=== PATIENT | male | born 1935 | race Caucasian/White ===

== ENCOUNTER 2018-10-15 20:51 | Inpatient (IN) | payer MEDICARE ==
[2018-10-15 21:11] LABS: #Eosinphils 0.4 thou/uL (0.0-0.7); #Lymphocytes 1.4 thou/uL (1.20-3.40); #Monocytes 0.5 thou/uL (0.11-0.59); #Neutrophils 4.3 thou/uL (1.40-6.50); %Basophils 0.4 % (0.0-1.0); %Eosinophils 5.4 % (0.0-10.0); %Lymphocytes 21.2 % (21.0-51.0); %Monocytes 7.5 % (0.0-10.0); %Neutrophils 65.5 % (42.0-75.0); Hemoglobin 13.1 g/dL (14.0-18.0); Mean Corpuscular HGB CONC 33.8 g/dL (32.0-36.0); Mean Corpuscular Hemoglobin 31.1 pg (27.0-31.0); Platelet Count 170 thou/uL (130-400); RBC Distribution Width 12.2 % (11.5-14.5); Red Blood Cell (RBC) Count 4.21 mill/uL (4.70-6.10); White Blood Cell (WBC) Count 6.5 thou/uL (4.8-10.8)
[2018-10-15 21:15] LABS: INR-International Normal Ratio 1.1; PTT 28.7 SEC (22.9-36.1); Prothrombin Time 14.3 SEC (12.0-14.7)
[2018-10-15] MEDS ORDERED: Metoprolol Tartrate 5 MG/5 ML VIAL ONE (21:18)
[2018-10-15 21:26] LABS: ALT (SGPT) 22 U/L (8-55); AST (SGOT) 20 U/L (5-34); Albumin 4.1 g/dL (3.4-4.8); Alkaline Phosphatase 78 U/L (40-150); Anion Gap 14 mmol/L (10-20); BUN (Urea Nitrogen) 17 mg/dL (8.4-25.7); Bilirubin, Total 0.4 mg/dL (0.2-1.2); CK (CPK) 85 U/L (30-200); Calc. Creatinine Clearance 0 mL/min (70-130); Calcium 9.2 mg/dL (7.8-10.44); Carbon Dioxide 25 mmol/L (23-31); Chloride 106 mmol/L (98-107); Estimated GFR-MDRD 70; Globulin 2.3 g/dL (2.4-3.5); Glucose 101 mg/dL (83-110); Potassium 4.1 mmol/L (3.5-5.1); Protein, Total 6.4 g/dL (5.8-8.1); Sodium 141 mmol/L (136-145)
--- NOTE | 2018-10-15 21:32 | CT ---
CT BRAIN NONCONTRAST: DATE: 10/15/18 at 9:00 p.m. HISTORY: 82-year-old male with headache. Altered mental status This acute stroke alert protocol report was called to Dr. Sharma' telephone at 9:05 p.m. on 10/15/18. Dr. Sharma' learning and development assistant stated that Dr. Sharma was aware of the intracranial hemorrhage, and that he wa s speaking on the telephone with neurosurgery service. COMPARISON: None. FINDINGS: There is an approximately 4 x 3.5 cm left temporal lobe intra-axial hematoma with surrounding vasogen ic edema. It causes local mass effect, effacing the trigone and temporal horn of the left lateral sánchez tricle. There is no obstructive hydrocephalus. No midline shift. Small, approximately 0.4 x 0.8 cm in tra-axial hyperdensity in the posterior aspect of the left thalamus could either be another, small f ocus of hemorrhage or calcification. On the contralateral right posterior thalamus, there is a smaller, more faint such high density struc ture, which is probably a calcification. Diffuse involutional changes of the brain, not unusual for a ge. Mild to moderate chronic ischemic white matter changes. No epidural, subarachnoid, or subdural he matoma. No acute calvarial fracture. IMPRESSION: 1. Acute left temporal intra-axial hematoma with mild local mass effect. 2. Questionable small left thalamic hemorrhage vs calcification. Code CYNDY [place] POS: [facility]
[2018-10-15] MEDS ORDERED: Ondansetron PF 4 MG/2 ML Vial IVP PRN (22:03)
[2018-10-15] MEDS ORDERED: Milk Of Magnesia 30 ML UDCUP PO PRN (22:03)
[2018-10-15] MEDS ORDERED: Mag-Al 1200 mg/1200 mg/30 ML UDCUP PO PRN (22:03)
[2018-10-15] MEDS ORDERED: Acetaminophen 650 MG in Premix Bag 1 BAG IVPB PRN (22:08)
[2018-10-15] MEDS ORDERED: Morphine 2 MG/ML SYRINGE SLOW IVP PRN (22:09)
[2018-10-15] MEDS ORDERED: niCARdipine 20MG In NaCl 20 MG/200 ML BAG ONE (22:10)
[2018-10-15] MEDS ORDERED: Lorazepam 2 MG/ML VIAL ONE ×2 (23:20→23:47)
[2018-10-15] MEDS ORDERED: KETAMINE 100 MG/ML (5ML VIAL) ONE (23:30)
--- NOTE | 2018-10-16 01:50 | HP ---
HISTORY OF PRESENT ILLNESS: The patient is an 82-year-old male with a past medical history of hypertension, hyperlipidemia, prostate cancer, recently completed radiation treatment and currently on Lupron therapy, who presented to the emergency department tonight per EMS after sudden onset of headache and development of confusion this afternoon around 4:00 p.m. The patient's reports she was with him around 4:00 p.m. when he 1st developed a headache. He was treated with Advil and did report improvement of his pain at that time. However, over the next few hours, he became increasingly confused. Therefore, she contacted EMS who brought him to the emergency department for further evaluation. CT head was done on arrival, which noted for large left temporal lobar hemorrhage. There is some local mass effect, but no midline shift. The patient's blood pressure was also noted to be elevated on arrival in the emergency department with systolic blood pressure initially 197. He was started on a Cardene drip and this is improved during his admission course. He was evaluated further with lab work and has normal coags and platelets. I am visiting the patient at bedside in the emergency department. He has a GCS of 12. He opens his eyes with some stimulation and command. He is very confused and has inappropriate words. He is noted to be spontaneously moving all fours and will follow some commands with prompting. His pupils are equal and reactive to light. He seems to have good strength throughout. PAST MEDICAL HISTORY: Hypertension, hyperlipidemia, and prostate cancer. PAST SURGICAL HISTORY: Hernia repair. SOCIAL HISTORY: The patient lives at home. He is . Does not smoke, drink, or use any drugs. REVIEW OF SYSTEMS: Per HPI. ALLERGIES: THE PATIENT IS ALLERGIC TO TETRACYCLINE. PHYSICAL EXAMINATION: VITAL SIGNS: BP is 169/89, respiration rate is 16, the patient is 100% on room air, pulse is 47, temperature is 97.9. CONSTITUTIONAL: Awake and alert. GCS 12. Eyes open to verbal commands, his words are inappropriate. He is following some commands and moving his extremities. HEAD: Normocephalic, atraumatic. EYES: PERRLA. Extraocular movements intact. ENT: Oral mucosa is pink and intact and moist. Although, he has inappropriate words, no slurred speech is appreciated. NECK: Nontender to palpation. Free active range of motion. RESPIRATORY: Symmetric chest expansion. No evidence of dyspnea. CARDIOVASCULAR: Regular rate and rhythm. MUSCULOSKELETAL: He is noted to be moving all lower extremities spontaneously. No focal motor weakness is appreciated. NEURO: Unable to assess orientation secondary to the patient's confusion. He has normal speech, although he is saying inappropriate words. He is moving all four spontaneously and does not appear to have any focal motor weakness. ASSESSMENT AND PLAN: This is an 82-year-old male with history of hypertension and prostate cancer, who was brought to the emergency department for confusion and found to have a left temporal lobar intracranial hemorrhage with localized mass effect, but no significant midline shift. His blood pressure was slightly elevated initially on arrival, but he was started on Cardene with improvement. Considering the location of the bleed, hypertensive origin is less likely. We will plan to evaluate further for possible underlying lesion or vascular abnormality with MRI of the brain with and without contrast as well as MRV of the brain. He will be admitted to the critical care unit where he will be monitored closely with q.1 neuro checks, head of the bed will be elevated 30 degrees and systolic blood pressure goal will be 140. We will hold any anticoagulants. I have consulted the Medical Team and Critical Care for assistance with medical management. I have discussed this plan with Dr. Young who is in agreement. Job ID: [id number] MTDD
[2018-10-16] MEDS: Lorazepam 2 MG/ML VIAL SLOW IVP PRN ×3 (02:18→11:44)
[2018-10-16] MEDS: Sodium Chloride 0.9% 1,000 ML IV SCH ×3 (02:34→23:54)
[2018-10-16] MEDS: niCARdipine HCl 50 MG in Sodium Chloride 0.9% 250 ML 230 ML IVPB PRN ×3 (02:35→23:54)
[2018-10-16] MEDS: Famotidine/PF 20 mg/2ml Vial SLOW IVP SCH ×2 (08:05→21:35)
--- NOTE | 2018-10-16 08:14 | MRI ---
PRELIMINARY REPORT/[facility]/EMERGENCY AFTER HOURS PROCEDURE: Addendum created by Beni De Oliveira MD on 10/16/2018 1:57 AM Central Time ([place] & [place]) THIS REPORT CONT AINS FINDINGS THAT MAY BE CRITICAL TO PATIENT CARE. The findings were verbally communicated via telep yamini conference with INGRID KIRAN at 1:57 AM PORTFOLIO DIRECTOR on 10/16/2018. The findings were acknowledged and u nderstood. Initial Report created on 10/16/2018 1:17 AM Central Time ([place] & [place]) EXAM: MR Angiogram Head Without Contrast, Venogram EXAM DATE/TIME: 10/16/2018 12:11 AM CLINICAL HISTORY: 82 years old, male; Signs and symptoms; Headache; Patient HX: Level [address] . . Call dr. Wiggins is at [phone] with results m83, last seen normal around 1600, headache, patient is unable to answer qu estios properly, not making sense, not following directions TECHNIQUE: MR angiogram of the head without contrast. Exam focused on the veins. MIP reconstructed images were created and reviewed. COMPARISON: No relevant prior studies available. FINDINGS: Superior sagittal sinus: Patent. Straight sinus: Patent. Internal cerebral and cortical veins: Unremarkable as visualized. Transverse sinuses: Patent. Sigmoid sinuses: Patent. Internal jugular veins: Visualized segment patent. IMPRESSION: No venous thrombus. Thank you for allowing us to participate in the care of your patient. Dictated and Authenticated by: Beni De Oliveira MD 10/16/2018 1:17 AM Central Time ([place] & [place]) MR VENOGRAM: HISTORY: Stroke alert. COMPARISON: None. TECHNIQUE: Coronal 2D [id number] imaging of the intracranial venous system was performed. Maximum-intensity projection images are submitted for interpretation. FINDINGS: This report is in agreement with the preliminary report by [facility]. No evidence of thrombosis of the int racranial venous system. POS: [facility]
--- NOTE | 2018-10-16 09:03 | CT ---
PRELIMINARY REPORT/[facility]/EMERGENTY AFTER-HOURS PROCEDURE CT Head Without Contrast EXAM DATE/TIME: 10/16/2018 4:38 AM CLINICAL HISTORY: 82 years old, male; Condition or disease; Other: Ich; Patient HX: Ich follow up. M83, last seen laly méndez around 1600, headache, patient is unable to answer questios properly, not making sense, not followi ng directions. Prev sent TECHNIQUE: Axial computed tomography images of the head/brain without contrast. COMPARISON: CT Brain WO Con 10/15/2018 8:59 PM FINDINGS: Brain: No significant change in the large intraparenchymal hemorrhage in the left temporal lobe with surrounding edema which causes effacement of adjacent sulci. Stable minimal midline shift to the righ t of approximately 3 mm. Age appropriate atrophy and small vessel ischemic change. Ventricles: Normal. No ventriculomegaly. Bones/joints: Normal. No acute fracture. Sinuses: Normal as visualized. No acute sinusitis. Mastoid air cells: Normal as visualized. No mastoid effusion. Orbits: The patient has had bilateral lens replacement surgery. Soft tissues: Normal. Vasculature: Carotid and vertebral artery atherosclerotic calcification. IMPRESSION: Stable intraparenchymal hemorrhage in the left temporal lobe. Thank you for allowing us to participate in the care of your patient. Dictated and Authenticated by: Beni De Oliveira MD 10/16/2018 5:09 AM Central Time ([place] & [place]) FINAL REPORT CT HEAD NONCONTRAST: DATE: 10/16/2018. TIME: Performed on an emergency basis at 0439 hours. HISTORY: Intracranial hemorrhage. Followup. COMPARISON: 10/15/2018. FINDINGS: Agree with the preliminary report by Dr. De Oliveira from [facility]. Left temporal intraparenchyma l hematoma is stable compared to the most recent exam. No new abnormalities. POS: [facility]
--- NOTE | 2018-10-16 09:05 | MRI ---
PRELIMINARY REPORT/[facility]/EMERGENTY AFTER-HOURS PROCEDURE Addendum created by Beni De Oliveira MD on 10/16/2018 1:57 AM Central Time ([place] & [place]) THIS REPORT CONTAINS FINDINGS THAT MAY BE CRITICAL TO PATIENT CARE. The findings were verbally commun icated via telephone conference with INGRID KIRAN at 1:57 AM LOAN MANAGER on 10/16/2018. The findings were ac knowledged and understood. Initial Report created on 10/16/2018 1:57 AM Central Time ([place] & [place]) MR Head Without and With Contrast EXAM DATE/TIME: 10/16/2018 12:24 AM CLINICAL HISTORY: 82 years old, male; Signs and symptoms; Altered mental status/memory loss; Patient HX: Level [address] stroke [address] . . Call dr. Sharma at [phone] with results m83, last seen normal around 1600, headache, patie nt is unable to answer questios properly, not making sense, not following directions TECHNIQUE: MR of the head without and with intravenous contrast. CONTRAST: 20 ml of Multihance administered intravenously. COMPARISON: MR head^general 10/16/2018 12:11 AM FINDINGS: Brain: There is a 3.5 x 6.4 x 4.8 cm (54 cc) acute intraparenchymal hemorrhage in the left temporal l obe which appears isointense on T1 with heterogeneous signal and decreased signal on T2. There is als o fluid level in the anterior portion of this collection. This causes effacement of adjacent sulci. T here is approximately 3.3 mm midline shift to the right. Ruiz-white matter differentiation is preserv ed. Ventricles: Normal. No ventriculomegaly. Bones/joints: Unremarkable. Soft tissues: Normal. Sinuses: Normal as visualized. No acute sinusitis. Mastoid air cells: Normal as visualized. No mastoid effusion. Orbits: The patient has had bilateral lens replacement surgery. IMPRESSION: Large intraparenchymal hemorrhage in the left temporal lobe. Correlation with any recent noncontrast head CT is recommended. Thank you for allowing us to participate in the care of your patient. Dictated and Authenticated by: Beni De Oliveira MD 10/16/2018 1:57 AM Central Time ([place] & [place]) FINAL REPORT BRAIN MRI WITH AND WITHOUT CONTRAST: HISTORY: Stroke alert. The patient has a known intracranial hemorrhage. COMPARISON: None. TECHNIQUE: A brain MRI is performed with and without intravenous Gadolinium administration. Multisequential, mu ltiplanar imaging is performed. FINDINGS: This report is in agreement with the preliminary report by [facility]. Redemonstration of a large intrapare nchymal hemorrhage centered in the left temporal lobe, corresponding to recent CT. There is associat ed mass and effacement of the sulci. Associated air fluid level is noted. Absent restricted diffusi on. Throughout the remainder of the cerebrum, there is some restricted diffusion which is compatible with hemorrhage. POS: [facility]
[2018-10-16] MEDS ORDERED: Iopamidol 370 76% 100 ML VIAL ONE (10:06)
--- NOTE | 2018-10-16 14:53 | PRG ---
DATE OF SERVICE: 10/15/2018 SUBJECTIVE: The patient was seen and examined. I agree with Abbey Garces's evaluation on 10/15/2018. The patient is an 82-year-old man, who had sudden onset of confusion and dysphasia and ultimately diminished level of consciousness that prompted his emergent evaluation. Currently, his eyes are closed. He is thrashing about in the bed, moving all 4s very strongly. He is not following commands or interacting with the examiner. He is nonverbal. CT scan reveals a left lobar temporal hematoma that is stable on followup. MRI scan again shows a hematoma without underlying lesion. An MRV is reportedly negative. IMPRESSION AND PLAN: Lobar intracranial hemorrhage, left temporal lobe. Nonsurgical. He has significant cognitive and language issues that are going to be very problematic to manage. 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 We will hold his aspirin and see how the next day or two goes as we address issues of nutrition and mobilization. Hemorrhagic stroke order set has been initiated. Job ID: [id number]
--- NOTE | 2018-10-17 01:58 | CON ---
DATE OF CONSULTATION: 10/16/2018 HISTORY OF PRESENT ILLNESS: Mr. Wetzel is an 82-year-old male, who has unfortunately sustained a hemorrhagic stroke. He was admitted to the hospital late last night. I was consulted because of his presence in the ICU. His daughter and his were at the bedside. He is nonverbal. PAST MEDICAL HISTORY: Remarkable for hypertension, lipid disorder, and prostate cancer. PAST SURGICAL HISTORY: Remarkable for herniorrhaphy. SOCIAL HISTORY: He is a nonsmoker, nondrinker, does not use drugs. As mentioned, his is at the bedside. FAMILY HISTORY: Not obtained. REVIEW OF SYSTEMS: A 10-point review of systems completed, otherwise not obtainable. ALLERGIES: REPORTS A TETRACYCLINE ALLERGY. PHYSICAL EXAMINATION: GENERAL: Mr. Wetzel is an 82-year-old male VITAL SIGNS: Blood pressure this afternoon is 139/73, heart rate is 80, respiratory rate is 16, oximetry is 99. He is hemiplegic. He is apparently ambidextrous according to his family. He opens his eyes. He has intermittently been verbal according to the . He would not follow commands for me. HEENT: His pupils are equal. Sclerae are anicteric. NECK: Supple. LUNGS: Clear. HEART: Regular rhythm. S1 and S2 are normal. ABDOMEN: Soft and nontender. EXTREMITIES: Without clubbing, cyanosis, or edema. He was not moving his right side when I was in the room. IMPRESSION: Parenchymal brain hemorrhage. He is protecting his airway now. It is very likely that he may not over the next few days, but we will continue to monitor him in the critical care unit. He did likely benefit from a PEG. His told me he would never want to be on the ventilator if that was required, but she also has been very quickly told me, but I am making the decisions here, we are going to do everything. Hopefully, he will recover, but at 82 years of age, it is unlikely he will recover to be fully functional again. I explained this to the family. I have asked him to discuss code status in light of the wishes that he had expressed to her in the past. I will follow along with other physicians caring for him. This is a 70 minute consult, with greater than 50% of time spent on unit coordinating care. Job ID: [id number] [facility]
[2018-10-17 05:41] LABS: Anion Gap 15 mmol/L (10-20); BUN (Urea Nitrogen) 14 mg/dL (8.4-25.7); Calc. Creatinine Clearance 66 mL/min (70-130); Calcium 9.3 mg/dL (7.8-10.44); Carbon Dioxide 21 mmol/L (23-31); Chloride 103 mmol/L (98-107); Estimated GFR-MDRD 87; Glucose 98 mg/dL (83-110); Magnesium 1.6 mg/dL (1.6-2.6); Potassium 3.6 mmol/L (3.5-5.1); Sodium 135 mmol/L (136-145)
[2018-10-17 06:37] LABS: Band 4 % (5-11); Hemoglobin 13.9 g/dL (14.0-18.0); Lymphocytes 6 % (21-51); MDiff Complete? YES; Mean Corpuscular HGB CONC 33.6 g/dL (32.0-36.0); Mean Corpuscular Volume 89.3 fL (78.0-98.0); Mean Platelet Volume 8.4 fL (7.4-10.4); Monocytes 5 % (0-10); Neutrophil 83 % (42-75); Platelet Count 191 thou/uL (130-400); RBC Distribution Width 12.3 % (11.5-14.5); Reactive Lymphocytes 2 % (0-10); Red Blood Cell (RBC) Count 4.65 mill/uL (4.70-6.10); White Blood Cell (WBC) Count 14.5 thou/uL (4.8-10.8)
--- NOTE | 2018-10-17 08:32 | PRG ---
DATE OF SERVICE: 10/17/2018 SUBJECTIVE: Mr. Wetzel is on the second day of the his hospital stay following a large left temporal lobe hemorrhage. He remains encephalopathic and very confused. He does not try to speak to me normal. He opens eyes. He has minimal response to pain other than a slight withdrawal response. He is in restraints in all four extremities as he is agitated and constantly moving. None of this seems to be purposeful, but is more or less erratic in nature. Neurosurgery will await hospitalist input, ability issues likely stable to the extent where we may be able to transition him out of the ICU. We will discuss with Dr. Aguirre. Job ID: [id number]
[2018-10-17] MEDS: Famotidine/PF 20 mg/2ml Vial SLOW IVP SCH ×2 (09:11→19:44)
[2018-10-17] MEDS: niCARdipine HCl 50 MG in Sodium Chloride 0.9% 250 ML 230 ML IVPB PRN ×2 (10:07→18:46)
[2018-10-17] MEDS: Sodium Chloride 0.9% 1,000 ML IV SCH (11:03)
--- NOTE | 2018-10-17 11:29 | EKG ---
Test Reason : Blood Pressure : / mmHG Vent. Rate : 048 BPM Atrial Rate : 048 BPM P-R Int : 164 ms QRS Dur : 136 ms QT Int : 484 ms P-R-T Axes : 017 018 -05 degrees QTc Int : 432 ms Marked sinus bradycardia Possible Left atrial enlargement Right bundle branch block Abnormal ECG Confirmed by LEON TELLEZ, MICHAEL ([id number]), news assignment editor ANDREINA PRECIADO ([id number]) on 10/17/2018 11:29:12 AM Referred By: Confirmed By:MICHAEL QUINTERO MD
--- NOTE | 2018-10-17 12:12 | PRG ---
DATE OF SERVICE: 10/17/2018 SUBJECTIVE: Mr. Wetzel is 2 days status post admission for a left temporal intracerebral hemorrhage. He has undergone an MRI scan as well as a CT angiography, both of which were negative for underlying lesion. This likely represents amyloid angiopathy versus hypertensive bleed. The hemorrhage has been relatively stable in size. Mr. Wetzel is in the ICU, resting comfortably. He does not awaken easily nor does he follow any commands. I would anticipate he would have a rather profound receptive aphasia given the location of the hemorrhage. He did fail his swallow study today for the most part due to inability to participate. I met with his today and had a discussion with them. I do not foresee a need for neurosurgical intervention. I did explain to her the other concerning risks associated with the type of hemorrhage in this nature, namely development of pneumonia, lower extremity DVTs, and maintaining adequate nutrition. She is well aware, he may require a PEG tube. Depending on his respiratory status over the next couple of days, he may require re-intubation if that is the direction he wants to move. Currently, he appears to be stable with the plan is to keep him in the ICU to remain vigilant with respect to his respiratory status and secretions. Job ID: [id number]
--- NOTE | 2018-10-17 21:09 | PDOC.PN ---
- Subjective Encounter Start Date: 10/17/18 Encounter Start Time: 13:00 -: non-verbal Patient seen and examined for med mngt. Family at bedside.. No overnight events - Objective MAR Reviewed: Yes Vital Signs & Weight: Vital Signs (12 hours) Temp Pulse Pulse BP BP Pulse Ox Pulse Ox 10/17/18 11:33 72 72 113/58 L 123/52 L 96 97 10/17/18 11:00 99.8 F H Weight Admit Weight 152 lb 12.485 oz Weight 147 lb 14.883 oz Most Recent Monitor Data Heart Rate from ECG 98 NIBP 121/74 NIBP BP-Mean 89 Respiration from ECG 35 SpO2 95 I&O: 10/16/18 10/17/18 10/18/18 06:59 06:59 06:59 Intake Total 551 2573 1720 Output Total 475 2705 570 Balance 76 -132 1150 Result Diagrams: 10/18/18 04:14 10/18/18 04:14 EKG Reviewed by me: Yes (Tele SR) Phys Exam - Physical Examination Constitutional: NAD (restless) Respiratory: no wheezing, no rhonchi Cardiovascular: RRR, no rub Gastrointestinal: soft, non-tender Neurological: moves all 4 limbs (spont) Dx/Plan (1) Toxic metabolic encephalopathy Code(s): G92 - TOXIC ENCEPHALOPATHY Status: Acute (2) Hypertensive emergency Code(s): I16.1 - HYPERTENSIVE EMERGENCY Status: Acute (3) Swallowing dysfunction Code(s): R13.10 - DYSPHAGIA, UNSPECIFIED Status: Acute (4) HLD (hyperlipidemia) Code(s): E78.5 - HYPERLIPIDEMIA, UNSPECIFIED Status: Chronic (5) Hypothyroidism Code(s): E03.9 - HYPOTHYROIDISM, UNSPECIFIED Status: Chronic - Plan cont current plan of care, plan discussed w/ family, speech therapy, DVT proph w /SCDs Cont Cardene drip -: Add PRN Labetalol -: Start low dose IV Levothyroxine -: Echo pend -: Full code. DPOA - spouse Review of Systems - Review of Systems Other: Cannot obtain due to current mentation - Medications/Allergies Allergies/Adverse Reactions: Allergies Allergy/AdvReac Type Severity Reaction Status Date / Time spironolactone Allergy Severe Verified 10/16/18 03:33 Tetracyclines Allergy Verified 10/16/18 03:33 Medications: Current Medications Acetaminophen (Tylenol) 650 mg PO Q6H PRN PRN Reason: Fever > 101 or Headache Al Hydroxide/Mg Hydroxide (Maalox) 30 ml PO QIDPRN PRN PRN Reason: Dyspepsia Famotidine (Pepcid) 20 mg SLOW IVP Q12HR [facility] Last Admin: 10/17/18 19:44 Dose: 20 mg Sodium Chloride (Normal Saline 0.9%) 1,000 mls @ 80 mls/hr IV .[id number] [facility] Last Admin: 10/17/18 11:03 Dose: 1,000 mls Nicardipine HCl 50 mg/ Sodium (Chloride) 250 mls @ 0 mls/hr IVPB INF PRN; Protocol PRN Reason: SBP > 150 or DBP > 90 Last Admin: 10/17/18 18:46 Dose: 250 mls Dexmedetomidine HCl 200 mcg/ (Sodium Chloride) 50 mls @ 0 mls/hr IVPB INF ANEUDY; Protocol Last Admin: 10/17/18 04:53 Dose: 50 mls Labetalol HCl (Normodyne) 10 mg SLOW IVP Q1H PRN PRN Reason: Systolic BP > 140 Lorazepam (Ativan) 1 mg SLOW IVP Q4H PRN PRN Reason: Anxiety/Agitation Last Admin: 10/16/18 11:44 Dose: 1 mg Magnesium Hydroxide (Milk Of Magnesium) 30 ml PO BIDPRN PRN PRN Reason: Constipation Morphine Sulfate (Morphine) 2 mg SLOW IVP Q4H PRN PRN Reason: Moderate to Severe Pain (6-10) Ondansetron HCl (Zofran) 4 mg IVP BIDPRN PRN PRN Reason: Nausea/Vomiting Sodium Chloride (Flush - Normal Saline) 10 ml IVF PRN PRN PRN Reason: Saline Flush
--- NOTE | 2018-10-18 00:14 | PRG ---
DATE OF SERVICE: 10/17/2018 SUBJECTIVE: Mr. Wetzel is more fidgety today. He is all over the bed. He is moving all of his extremities. OBJECTIVE: VITAL SIGNS: Heart rate is 90, blood pressure 130/74, this evening, respiratory rates in the teens. LUNGS: He is protecting his airway. His lungs are clear. HEART: Regular rhythm. S1-S2 are normal. ABDOMEN: Soft and nontender. EXTREMITIES: Without asymmetry or edema. IMAGING: Echocardiogram is done, which shows a normal ejection fraction. No thrombus was seen. LABORATORY DATA: White count 14.5, hemoglobin 13.9, platelets 191. Sodium 135, potassium 3.6, chloride 103, bicarb 21, BUN 14, creatinine 0.84. IMPRESSION: Temporal lobe bleed, clinically stable. He is unable to swallow at this point in time. Will consider Dobhoff tube placement, if he is not ready.A percutaneous endoscopic gastrostomy would be the next step, probably tomorrow. I think he should stay in the Critical Care Unit, because he is certainly at high risk for developing an inability to handle these secretions. His is very appreciate of the care given. I Tried to answer all of her questions. It is a difficult situation, because none of us can tell her exactly how much he will recover. Job ID: [id number] [facility]
[2018-10-18] MEDS: Sodium Chloride 0.9% 1,000 ML IV SCH ×2 (00:33→12:42)
[2018-10-18] MEDS: niCARdipine HCl 50 MG in Sodium Chloride 0.9% 250 ML 230 ML IVPB PRN ×2 (00:36→12:43)
[2018-10-18 05:13] LABS: Anion Gap 13 mmol/L (10-20); BUN (Urea Nitrogen) 20 mg/dL (8.4-25.7); Calc. Creatinine Clearance 71 mL/min (70-130); Calcium 8.9 mg/dL (7.8-10.44); Carbon Dioxide 21 mmol/L (23-31); Chloride 104 mmol/L (98-107); Estimated GFR-MDRD Greater than 90; Glucose 92 mg/dL (83-110); Potassium 3.2 mmol/L (3.5-5.1); Sodium 135 mmol/L (136-145)
[2018-10-18 07:03] LABS: Band 10 % (5-11); Hemoglobin 13.3 g/dL (14.0-18.0); Lymphocytes 4 % (21-51); MDiff Complete? YES; Mean Corpuscular HGB CONC 34.2 g/dL (32.0-36.0); Mean Corpuscular Hemoglobin 30.4 pg (27.0-31.0); Mean Corpuscular Volume 88.7 fL (78.0-98.0); Monocytes 7 % (0-10); Neutrophil 79 % (42-75); Platelet Count 200 thou/uL (130-400); RBC Distribution Width 12.2 % (11.5-14.5); White Blood Cell (WBC) Count 15.2 thou/uL (4.8-10.8)
--- NOTE | 2018-10-18 10:45 | PRG ---
DATE OF SERVICE: 10/18/2018 SUBJECTIVE: Mr. Wetzel is sitting on side of bed with his holding him up. He is tearful. OBJECTIVE: GENERAL: He is moving all his extremities. VITAL SIGNS: Heart rate 92, blood pressure 136/74, respiratory rate is in the 20s, oximetry is 95%. LUNGS: Unchanged. HEART: Unchanged. ABDOMEN: Unchanged. LABORATORY DATA: White count 15.2, hemoglobin 13.3, platelets 200,000. Sodium 135, potassium 3.2, chloride 104, bicarb 21, BUN 20, and creatinine 0.76. IMPRESSION: Hemorrhagic stroke with a labile mood now. He appears to be clinically stable. Nutrition is an issue. He is not cooperative enough to keep a Dobbhoff tube in without pulling it out. He is going to have a repeat swallowing evaluation today. If he does not pass that, then consideration needs to be given for PEG placement. Job ID: [id number] MTDD
[2018-10-18] MEDS: Levothyroxine 100 MCG SDV IVP SCH (11:00)
[2018-10-18] MEDS ORDERED: LEVOBUNOLOL 0.5% EA EYE SCH (11:00)
[2018-10-18] MEDS: Famotidine/PF 20 mg/2ml Vial SLOW IVP SCH ×2 (11:01→20:01)
[2018-10-18] MEDS: Acetaminophen 1,000 MG in Premix Bag 1 BAG IVPB PRN (14:18)
[2018-10-18] MEDS: D5 0.9% NS w/ 20 mEq KCl 1,000 ML IV SCH (16:26)
--- NOTE | 2018-10-18 19:22 | PDOC.PN ---
- Subjective Encounter Start Date: 10/18/18 Encounter Start Time: 14:30 Patient seen and examined for med mngt. Was more awake earlier. Sleeping now. No overnight events per RN and family. On Cardene drip. - Objective MAR Reviewed: Yes Vital Signs & Weight: Vital Signs (12 hours) Temp Pulse Pulse BP BP Pulse Ox 10/18/18 16:00 99 F 10/18/18 12:00 98.6 F 10/18/18 10:27 91 88 137/68 126/70 10/18/18 08:00 98.5 F 95 Weight Admit Weight 152 lb 12.485 oz Weight 150 lb 12.739 oz Most Recent Monitor Data Heart Rate from ECG 77 NIBP 131/74 NIBP BP-Mean 93 Respiration from ECG 19 SpO2 95 I&O: 10/17/18 10/18/18 10/19/18 06:59 06:59 06:59 Intake Total 2573 3087 1241.4 Output Total 2705 1195 1500 Balance -132 1892 -258.6 Result Diagrams: 10/18/18 04:14 10/18/18 04:14 EKG Reviewed by me: Yes (Tele SR) Phys Exam - Physical Examination Constitutional: NAD Respiratory: no wheezing, no rhonchi Cardiovascular: RRR, no rub Gastrointestinal: soft, positive bowel sounds Musculoskeletal: no edema Dx/Plan (1) Toxic metabolic encephalopathy Code(s): G92 - TOXIC ENCEPHALOPATHY Status: Acute Comment: improving (2) Hypertensive emergency Code(s): I16.1 - HYPERTENSIVE EMERGENCY Status: Acute Comment: on Cardene drip (3) Swallowing dysfunction Code(s): R13.10 - DYSPHAGIA, UNSPECIFIED Status: Acute Comment: NPO per [employer] (4) HLD (hyperlipidemia) Code(s): E78.5 - HYPERLIPIDEMIA, UNSPECIFIED Status: Chronic (5) Hypothyroidism Code(s): E03.9 - HYPOTHYROIDISM, UNSPECIFIED Status: Chronic (6) Hypokalemia Code(s): E87.6 - HYPOKALEMIA Status: Acute - Plan cont current plan of care, plan discussed w/ family, olmos catheter, PT/OT, speech therapy, DVT proph w/SCDs Cont supportive care -: Start PO anti HTN meds once able to tolerate PO -: Cont Cardene drip -: Change IVF to D5NS with KCL due to hypokalemia -: AM labs Review of Systems - Review of Systems Other: Cannot obtain due to current mentation. - Medications/Allergies Allergies/Adverse Reactions: Allergies Allergy/AdvReac Type Severity Reaction Status Date / Time spironolactone Allergy Severe Verified 10/16/18 03:33 Tetracyclines Allergy Verified 10/16/18 03:33 Medications: Current Medications Acetaminophen (Tylenol) 650 mg PO Q6H PRN PRN Reason: Fever > 101 or Headache Al Hydroxide/Mg Hydroxide (Maalox) 30 ml PO QIDPRN PRN PRN Reason: Dyspepsia Famotidine (Pepcid) 20 mg SLOW IVP Q12HR [facility] Last Admin: 10/18/18 11:01 Dose: 20 mg Nicardipine HCl 50 mg/ Sodium (Chloride) 250 mls @ 0 mls/hr IVPB INF PRN; Protocol PRN Reason: SBP > 150 or DBP > 90 Last Admin: 10/18/18 12:43 Dose: 250 mls Dexmedetomidine HCl 200 mcg/ (Sodium Chloride) 50 mls @ 0 mls/hr IVPB INF [facility]; Protocol Last Admin: 10/17/18 04:53 Dose: 50 mls Acetaminophen 1,000 mg/ Device 100 mls @ 400 mls/hr IVPB Q6HR PRN PRN Reason: Fever > 101/Pain Stop: 10/19/18 13:54 Last Admin: 10/18/18 14:18 Dose: 100 mls Potassium Chloride/Dextrose/Sod Cl (D5 0.9% Ns W/ 20 Meq Kcl) 1,000 mls @ 75 mls/hr IV .[id number] [facility] Last Admin: 10/18/18 16:26 Dose: 1,000 mls Labetalol HCl (Normodyne) 10 mg SLOW IVP Q1H PRN PRN Reason: Systolic BP > 140 Levothyroxine Sodium (Synthroid) 25 mcg IVP DAILY [facility] Last Admin: 10/18/18 11:00 Dose: 25 mcg Lorazepam (Ativan) 1 mg SLOW IVP Q4H PRN PRN Reason: Anxiety/Agitation Last Admin: 10/16/18 11:44 Dose: 1 mg Magnesium Hydroxide (Milk Of Magnesium) 30 ml PO BIDPRN PRN PRN Reason: Constipation Morphine Sulfate (Morphine) 2 mg SLOW IVP Q4H PRN PRN Reason: Moderate to Severe Pain (6-10) Ondansetron HCl (Zofran) 4 mg IVP BIDPRN PRN PRN Reason: Nausea/Vomiting Levobunolol Ophthalmic Solution 0.5% 0 each EA EYE DAILY ANEUDY Sodium Chloride (Flush - Normal Saline) 10 ml IVF PRN PRN PRN Reason: Saline Flush
[2018-10-19] MEDS: Acetaminophen 1,000 MG in Premix Bag 1 BAG IVPB PRN ×2 (01:27→14:25)
[2018-10-19] MEDS: D5 0.9% NS w/ 20 mEq KCl 1,000 ML IV SCH (04:46)
[2018-10-19 05:19] LABS: Hemoglobin 12.7 g/dL (14.0-18.0); Mean Corpuscular HGB CONC 33.6 g/dL (32.0-36.0); Mean Corpuscular Hemoglobin 30.2 pg (27.0-31.0); Mean Corpuscular Volume 89.9 fL (78.0-98.0); Platelet Count 192 thou/uL (130-400); RBC Distribution Width 12.1 % (11.5-14.5); Red Blood Cell (RBC) Count 4.22 mill/uL (4.70-6.10); White Blood Cell (WBC) Count 15.1 thou/uL (4.8-10.8)
[2018-10-19 05:24] LABS: Band 5 % (5-11); Lymphocytes 6 % (21-51); MDiff Complete? YES; Monocytes 12 % (0-10); Neutrophil 77 % (42-75)
[2018-10-19 05:34] LABS: Anion Gap 14 mmol/L (10-20); BUN (Urea Nitrogen) 18 mg/dL (8.4-25.7); Calc. Creatinine Clearance 66 mL/min (70-130); Calcium 8.9 mg/dL (7.8-10.44); Carbon Dioxide 23 mmol/L (23-31); Chloride 106 mmol/L (98-107); Estimated GFR-MDRD Greater than 90; Glucose 101 mg/dL (83-110); Potassium 3.2 mmol/L (3.5-5.1); Sodium 140 mmol/L (136-145)
--- NOTE | 2018-10-19 07:29 | CT ---
NONCONTRAST HEAD CT CT ANGIOGRAM OF THE HEAD CT ANGIOGRAM OF THE NECK: HISTORY: Intracranial hemorrhage. COMPARISON: Head CT without contrast 10/15/2018. TECHNIQUE: Noncontrast head CT is performed in the axial plane. CT angiogram of the head and neck is performed in the axial plane. Three-dimensional reformatted images are submitted for interpretation. FINDINGS: NONCONTRAST HEAD CT: Intraparenchymal hemorrhage centered in the left temporal lobe is demonstrated measuring 3.0 x 4.6 cm . There is associated edema with effacement of the left temporal sulci. There is some mass effect u gaudencio the temporal horn of the left lateral ventricle. There is no significant midline shift. Basilar cisterns are patent. Ambient cisterns are also patent. Calvarium is intact. Postop contrast head CT does not demonstrate any pathologic enhancement of the brain parenchyma. Cor tical kate-white matter differentiation is preserved. Bilateral lens implants are appropriately located. Both globes are intact. Retrobulbar fat is prese rved. Limited evaluation of the oral cavity due to dental amalgam artifact. No obvious masses in th e oral cavity. Midline fatty raphae of the tongue is preserved. Epiglottis has a normal caliber. P reepiglottic fat is preserved. There is no prevertebral soft tissue swelling. Minimal heterogeneity of the left thyroid gland. A nonemergent ultrasound is recommended. Symmetric attenuation of the parotid and submandibular glands. Symmetric attenuation of the sternocl eidomastoid muscles. No evidence of lymphadenopathy by size criteria. Varying degrees of central canal stenosis and foraminal narrowing on the basis of degenerative change . Evaluation is limited by technique. Cervical spine vertebral body height is maintained. There is no fracture. Upper mediastinum is unremarkable. Chronic changes of the visualized lung apices. CT ANGIOGRAM: Aortic arch has a normal caliber. There is atherosclerosis of the aortic knob. RIGHT CAROTID: There is appropriate enhancement and luminal diameter of the origin of the right carotid artery, comm on carotid artery, carotid bifurcation, and internal carotid artery. There is tortuosity of the dist al right internal carotid artery. LEFT CAROTID: There is appropriate enhancement and luminal diameter of the origin of the left carotid artery, commo n carotid artery, carotid bifurcation, and internal carotid artery. There is calcified plaque withou t significant stenosis in the left carotid bifurcation and proximal internal carotid artery. There i s tortuosity of the distal left internal carotid artery. Both subclavian arteries are patent. Origin of both cervical carotid arteries demonstrates minimal atherosclerosis of the left cervical ca rotid artery. Nevertheless, there is no significant stenosis. Both vertebral arteries are patent th roughout their course in the neck. The left vertebral artery is dominant. CT ANGIOGRAM OF THE HEAD: The distal cervical and intracranial internal carotid arteries have appropriate enhancement and lumin al diameter. ANTERIOR CIRCULATION: There is appropriate enhancement and luminal diameter of the A1 and M1 segments. Proximal A2 segment s and MCA branches are unremarkable. There is no evidence of a vascular malformation in the left cer ebrum. Vascular malformation could easily be obscured due to the presence of hematoma in the left te mporal lobe. POSTERIOR CIRCULATION: Both intracranial vertebral arteries are patent. Both vertebral arteries supply a normal-caliber bas ilar artery. The left and right P1 segments have appropriate enhancement and luminal diameter. No e vidence of a posterior circulation aneurysm or vascular malformation. IMPRESSION: 1. Redemonstration of a hemorrhage centered in the left temporal lobe. 2. No evidence of a vascular malformation or aneurysm. A vascular lesion could easily be obscured g iven the presence of hemorrhage and edema in the left temporal lobe. Followup imaging can be perform ed when acute hematoma resolves. 3. No evidence of significant stenosis based upon NASCET criteria and other cervical carotid artery. POS: [facility]
[2018-10-19] MEDS ORDERED: D5 NS w/ 40 mEq KCl 1,000 ML IV SCH (07:45)
[2018-10-19] MEDS: Potassium Chloride 20 MEQ in Premix Bag 1 BAG IVPB SCH ×2 (09:10→10:40)
[2018-10-19] MEDS: Famotidine/PF 20 mg/2ml Vial SLOW IVP SCH ×2 (09:21→20:53)
[2018-10-19] MEDS: LEVOBUNOLOL 0.5% EA EYE SCH (09:22)
[2018-10-19] MEDS: Levothyroxine 100 MCG SDV IVP SCH (09:23)
--- NOTE | 2018-10-19 14:45 | PRG ---
DATE OF SERVICE: 10/19/2018 SUBJECTIVE: Mr. Wetzel continues to become more interactive with each day. OBJECTIVE: VITAL SIGNS: He is afebrile, heart rate is in the 50s, blood pressure 149/81, respiratory rate is 20. GENERAL: He is sitting in a chair. He would follow commands. He moves all four extremities. LUNGS: Clear. HEART: Regular rhythm. ABDOMEN: Soft. He does not follow the commands we want, but he will follow directed commands during the exam. He intermittently swallows to command. Speech pathologist had difficulty doing a bedside evaluation. Instead of doing a barium swallow, we have agreed that we will use thickened Ensure and try to just get sips in him throughout the day. Hopefully, he will tolerate this. I have explained to family some risk with this, but he will not tolerate a Dobbhoff tube, so I think this is the best option versus proceeding straight to PEG placement. I am certain he will pull a Dobbhoff tube out, so we will just try with this and see how he does and reassess him at the bedside tomorrow. If he becomes more cooperative, perhaps we can do a barium swallow. LABORATORY DATA: His electrolytes are unremarkable today. His CBC is essentially unchanged. White count 15, hemoglobin 12.1, and platelets 192, 77 segs, and 5% bands. IMPRESSION: Parenchymal brain hemorrhage, clinically improving. PLAN: Continue supportive care in the critical care environment or on the Stroke Unit if family can stay with him. Job ID: [id number]
--- NOTE | 2018-10-19 20:13 | PDOC.PN ---
- Subjective Encounter Start Date: 10/19/18 Encounter Start Time: 09:00 Patient seen and examined for med mngt. More awake. Able to complete short sentences. Confused. No new complaints. No overnight events - Objective MAR Reviewed: Yes Vital Signs & Weight: Vital Signs (12 hours) Temp Pulse Pulse Pulse Resp BP BP 10/19/18 17:38 10/19/18 16:15 98.8 F 54 L 20 10/19/18 11:54 98.6 F 10/19/18 09:12 102 H 79 148/79 H 105/67 BP Pulse Ox 10/19/18 17:38 149/89 H 10/19/18 16:15 146/87 H 98 10/19/18 11:54 10/19/18 09:12 Weight Admit Weight 152 lb 12.485 oz Weight 149 lb 11.102 oz Most Recent Monitor Data Heart Rate from ECG 61 NIBP 127/89 NIBP BP-Mean 101 Respiration from ECG 17 SpO2 100 I&O: 10/18/18 10/19/18 10/20/18 06:59 06:59 06:59 Intake Total 3087 2161.4 964 Output Total 1195 2915 490 Balance 1892 -753.6 474 Result Diagrams: 10/20/18 04:59 10/20/18 04:59 EKG Reviewed by me: Yes (Tele SR) Phys Exam - Physical Examination Constitutional: NAD Respiratory: no wheezing, no rhonchi Cardiovascular: RRR, no rub Gastrointestinal: soft, non-tender, positive bowel sounds Musculoskeletal: no edema Neurological: non-focal, moves all 4 limbs Dx/Plan (1) Toxic metabolic encephalopathy Code(s): G92 - TOXIC ENCEPHALOPATHY Status: Acute Comment: improving (2) Hypertensive emergency Code(s): I16.1 - HYPERTENSIVE EMERGENCY Status: Acute Comment: off Cardene drip (3) Swallowing dysfunction Code(s): R13.10 - DYSPHAGIA, UNSPECIFIED Status: Acute (4) HLD (hyperlipidemia) Code(s): E78.5 - HYPERLIPIDEMIA, UNSPECIFIED Status: Chronic (5) Hypothyroidism Code(s): E03.9 - HYPOTHYROIDISM, UNSPECIFIED Status: Chronic (6) Hypokalemia Code(s): E87.6 - HYPOKALEMIA Status: Acute - Plan cont current plan of care, DVT proph w/SCDs Replace Potassium -: Cont Labetalol PRN -: Add Hydralazine PRN -: Add Potassium to IVF -: AM labs Review of Systems - Review of Systems Respiratory: negative: Cough, Dry, Shortness of Breath, Hemoptysis, SOB with Excertion, Pleuritic Pain, Sputum, Wheezing Cardiovascular: negative: chest pain, palpitations, orthopnea, paroxysmal nocturnal dyspnea, edema, light headedness, other - Medications/Allergies Allergies/Adverse Reactions: Allergies Allergy/AdvReac Type Severity Reaction Status Date / Time spironolactone Allergy Severe Verified 10/16/18 03:33 Tetracyclines Allergy Verified 10/16/18 03:33 Medications: Current Medications Acetaminophen (Tylenol) 650 mg PO Q6H PRN PRN Reason: Fever > 101 or Headache Al Hydroxide/Mg Hydroxide (Maalox) 30 ml PO QIDPRN PRN PRN Reason: Dyspepsia Famotidine (Pepcid) 20 mg SLOW IVP Q12HR [facility] Last Admin: 10/19/18 09:21 Dose: 20 mg Nicardipine HCl 50 mg/ Sodium (Chloride) 250 mls @ 0 mls/hr IVPB INF PRN; Protocol PRN Reason: SBP > 150 or DBP > 90 Last Admin: 10/18/18 12:43 Dose: 250 mls Potassium Chloride/Dextrose/Sod Cl (D5 Ns W/ 40 Meq Kcl) 1,000 mls @ 75 mls/hr IV .[id number] [facility] Last Admin: 10/19/18 09:52 Dose: 1,000 mls Labetalol HCl (Normodyne) 10 mg SLOW IVP Q1H PRN PRN Reason: Systolic BP > 140 Levothyroxine Sodium (Synthroid) 25 mcg IVP DAILY [facility] Last Admin: 10/19/18 09:23 Dose: 25 mcg Lorazepam (Ativan) 1 mg SLOW IVP Q4H PRN PRN Reason: Anxiety/Agitation Last Admin: 10/16/18 11:44 Dose: 1 mg Magnesium Hydroxide (Milk Of Magnesium) 30 ml PO BIDPRN PRN PRN Reason: Constipation Morphine Sulfate (Morphine) 2 mg SLOW IVP Q4H PRN PRN Reason: Moderate to Severe Pain (6-10) Ondansetron HCl (Zofran) 4 mg IVP BIDPRN PRN PRN Reason: Nausea/Vomiting Levobunolol Ophthalmic Solution 0.5% 0 each EA EYE DAILY [facility] Last Admin: 10/19/18 09:22 Dose: 1 each Sodium Chloride (Flush - Normal Saline) 10 ml IVF PRN PRN PRN Reason: Saline Flush
[2018-10-19] MEDS ORDERED: Dextrose 5 % And 0.9 % NaCl 1,000 ML IV SCH (20:15)
[2018-10-19] MEDS: hydrALAZINE 20 MG/ML VIAL SLOW IVP PRN (20:52)
[2018-10-19] MEDS: Labetalol HCl 100 MG/20 ML VIAL SLOW IVP PRN (22:25)
[2018-10-19] MEDS ORDERED: Lorazepam 2 MG/ML VIAL SLOW IVP SCH (23:45)
[2018-10-19] MEDS: Lorazepam 2 MG/ML VIAL SLOW IVP PRN (23:49)
[2018-10-20] MEDS: Labetalol HCl 100 MG/20 ML VIAL SLOW IVP PRN ×2 (00:28→20:43)
[2018-10-20] MEDS ORDERED: Acetaminophen 650 MG Suppository PR PRN (00:45)
[2018-10-20 05:29] LABS: Anion Gap 14 mmol/L (10-20); BUN (Urea Nitrogen) 15 mg/dL (8.4-25.7); Calc. Creatinine Clearance 71 mL/min (70-130); Calcium 8.7 mg/dL (7.8-10.44); Carbon Dioxide 20 mmol/L (23-31); Chloride 110 mmol/L (98-107); Estimated GFR-MDRD Greater than 90; Glucose 107 mg/dL (83-110); Magnesium 1.7 mg/dL (1.6-2.6); Potassium 3.6 mmol/L (3.5-5.1); Sodium 140 mmol/L (136-145)
[2018-10-20 05:31] LABS: Hemoglobin 12.7 g/dL (14.0-18.0); Mean Corpuscular HGB CONC 33.4 g/dL (32.0-36.0); Mean Corpuscular Hemoglobin 30.4 pg (27.0-31.0); Mean Corpuscular Volume 90.8 fL (78.0-98.0); Mean Platelet Volume 8.8 fL (7.4-10.4); Platelet Count 191 thou/uL (130-400); RBC Distribution Width 12.3 % (11.5-14.5); Red Blood Cell (RBC) Count 4.18 mill/uL (4.70-6.10); White Blood Cell (WBC) Count 12.3 thou/uL (4.8-10.8)
[2018-10-20 05:32] LABS: Band 6 % (5-11); Eosinophils 2 % (0-10); Lymphocytes 13 % (21-51); MDiff Complete? YES; Monocytes 6 % (0-10); Neutrophil 73 % (42-75)
[2018-10-20] MEDS: LEVOBUNOLOL 0.5% EA EYE SCH (08:59)
[2018-10-20] MEDS: Famotidine/PF 20 mg/2ml Vial SLOW IVP SCH ×2 (08:59→20:44)
[2018-10-20] MEDS: Amlodipine 5 MG TAB PO SCH (09:00)
[2018-10-20] MEDS: Enalaprilat Dihydrate 1.25 MG/ML VIAL SLOW IVP SCH (10:19)
[2018-10-20] MEDS: Levothyroxine 100 MCG SDV IVP SCH (10:20)
[2018-10-20] MEDS: Dextrose 5 % And 0.9 % NaCl 1,000 ML IV SCH (10:23)
--- NOTE | 2018-10-20 15:47 | PDOC.PN ---
- Subjective Encounter Start Date: 10/20/18 Encounter Start Time: 09:15 Patient seen and examined for med mngt. No new complaints. Somnolent. Overnight events noted. Received Ativan last night. - Objective MAR Reviewed: Yes Vital Signs & Weight: Vital Signs (12 hours) Temp Pulse Pulse Resp BP BP BP 10/20/18 13:20 79 119/86 10/20/18 12:00 98.4 F 50 L 22 H 121/69 10/20/18 10:19 139/70 10/20/18 09:00 58 L 10/20/18 08:00 98.5 F 58 L 20 150/85 H 10/20/18 04:00 99.5 F 68 19 157/85 H Pulse Ox 10/20/18 13:20 10/20/18 12:00 96 10/20/18 10:19 10/20/18 09:00 10/20/18 08:00 96 10/20/18 04:00 97 Weight Admit Weight 152 lb 12.485 oz Weight 142 lb 3.2 oz Most Recent Monitor Data Heart Rate from ECG 61 NIBP 127/89 NIBP BP-Mean 101 Respiration from ECG 17 SpO2 100 I&O: 10/19/18 10/20/18 10/21/18 06:59 06:59 06:59 Intake Total 2161.4 1789 Output Total 2915 1315 Balance -753.6 474 Result Diagrams: 10/20/18 04:59 10/20/18 04:59 EKG Reviewed by me: Yes (Tele SR/SB) Phys Exam - Physical Examination Constitutional: NAD Respiratory: no wheezing, no rhonchi Cardiovascular: RRR, no rub Gastrointestinal: soft, non-tender, positive bowel sounds Musculoskeletal: no edema Neurological: moves all 4 limbs (spont) Dx/Plan (1) Toxic metabolic encephalopathy Code(s): G92 - TOXIC ENCEPHALOPATHY Status: Acute (2) Hypertensive emergency Code(s): I16.1 - HYPERTENSIVE EMERGENCY Status: Acute Comment: off Cardene drip (3) Swallowing dysfunction Code(s): R13.10 - DYSPHAGIA, UNSPECIFIED Status: Acute (4) HLD (hyperlipidemia) Code(s): E78.5 - HYPERLIPIDEMIA, UNSPECIFIED Status: Chronic (5) Hypothyroidism Code(s): E03.9 - HYPOTHYROIDISM, UNSPECIFIED Status: Chronic (6) Hypokalemia Code(s): E87.6 - HYPOKALEMIA Status: Chronic - Plan cont current plan of care, plan discussed w/ family, PT/OT, speech therapy, DVT proph w/SCDs Cont PO Amlodipine -: Add IV Vasotec for now since he may not be able to take PO meds -: Cont gentle IV hydration -: AM labs -: Will follow. Review of Systems - Review of Systems Cardiovascular: negative: chest pain, palpitations, orthopnea, paroxysmal nocturnal dyspnea, edema, light headedness, other Gastrointestinal: negative: Nausea, Vomiting, Abdominal Pain, Diarrhea, Constipation, Melena, Hematochezia, Other - Medications/Allergies Allergies/Adverse Reactions: Allergies Allergy/AdvReac Type Severity Reaction Status Date / Time spironolactone Allergy Severe Verified 10/16/18 03:33 Tetracyclines Allergy Verified 10/16/18 03:33 Medications: Current Medications Acetaminophen (Tylenol) 650 mg PO Q6H PRN PRN Reason: Fever > 101 or Headache Acetaminophen (Tylenol) 650 mg [place] Q4H PRN PRN Reason: Headache/Fever or Pain Al Hydroxide/Mg Hydroxide (Maalox) 30 ml PO QIDPRN PRN PRN Reason: Dyspepsia Amlodipine Besylate (Norvasc) 5 mg PO DAILY [facility] Last Admin: 10/20/18 09:00 Dose: 5 mg Enalaprilat (Vasotec) 1.25 mg SLOW IVP DAILY [facility] Last Admin: 10/20/18 10:19 Dose: 1.25 mg Famotidine (Pepcid) 20 mg SLOW IVP Q12HR [facility] Last Admin: 10/20/18 08:59 Dose: 20 mg Hydralazine HCl (Apresoline) 10 mg SLOW IVP Q4H PRN PRN Reason: Sbp Greater Than 150 Last Admin: 10/19/18 20:52 Dose: 10 mg Dextrose/Sodium Chloride (D5 0.9% Ns) 1,000 mls @ 50 mls/hr IV .Q20H [facility] Last Admin: 10/20/18 10:23 Dose: 1,000 mls Labetalol HCl (Normodyne) 10 mg SLOW IVP Q1H PRN PRN Reason: Systolic BP > 140 Last Admin: 10/20/18 00:28 Dose: 10 mg Levothyroxine Sodium (Synthroid) 25 mcg IVP DAILY [facility] Last Admin: 10/20/18 10:20 Dose: 25 mcg Lorazepam (Ativan) 0.25 mg SLOW IVP Q6H PRN PRN Reason: Anxiety/Agitation Magnesium Hydroxide (Milk Of Magnesium) 30 ml PO BIDPRN PRN PRN Reason: Constipation Morphine Sulfate (Morphine) 2 mg SLOW IVP Q4H PRN PRN Reason: Moderate to Severe Pain (6-10) Ondansetron HCl (Zofran) 4 mg IVP BIDPRN PRN PRN Reason: Nausea/Vomiting Levobunolol Ophthalmic Solution 0.5% 0 each EA EYE DAILY [facility] Last Admin: 10/20/18 08:59 Dose: 1 each Sodium Chloride (Flush - Normal Saline) 10 ml IVF PRN PRN PRN Reason: Saline Flush
--- NOTE | 2018-10-20 19:18 | CT ---
HISTORY: Headaches. Hemorrhagic stroke. Noncontrast enhanced CT images of the brain is obtained on 10/20/18. Comparison made to previous CT from 10/16/18. CT images of the brain demonstrate a large area of intraparenchymal hemorrhage in the left temporal l obe. There is increasing surrounding cerebral edema. No significant midline shift is seen at this time. No other acute areas of hemorrhage seen. IMPRESSION: Continued area of intraparenchymal left temporal lobe hemorrhage with surrounding edema. POS: [facility]
[2018-10-20] MEDS: Lorazepam 2 MG/ML VIAL SLOW IVP PRN (20:41)
[2018-10-20] MEDS ORDERED: Lorazepam 2 MG/ML VIAL SLOW IVP SCH (23:30)
--- NOTE | 2018-10-20 23:57 | PDOC.EVN ---
Event Note - Event Note Event Note: Patient with increased agitation and attempting to get out of bed. Ordered one time additional Ativan 0.25mg as needed for agitation.
[2018-10-21 05:03] LABS: Band 4 % (5-11); Eosinophils 4 % (0-10); Hemoglobin 11.7 g/dL (14.0-18.0); Lymphocytes 14 % (21-51); MDiff Complete? YES; Mean Corpuscular HGB CONC 33.1 g/dL (32.0-36.0); Mean Corpuscular Volume 90.5 fL (78.0-98.0); Mean Platelet Volume 8.8 fL (7.4-10.4); Monocytes 15 % (0-10); Neutrophil 61 % (42-75); Platelet Count 182 thou/uL (130-400); RBC Distribution Width 12.2 % (11.5-14.5); Reactive Lymphocytes 2 % (0-10); White Blood Cell (WBC) Count 8.4 thou/uL (4.8-10.8)
[2018-10-21 05:11] LABS: Anion Gap 12 mmol/L (10-20); BUN (Urea Nitrogen) 14 mg/dL (8.4-25.7); Calc. Creatinine Clearance 71 mL/min (70-130); Calcium 8.6 mg/dL (7.8-10.44); Carbon Dioxide 22 mmol/L (23-31); Chloride 109 mmol/L (98-107); Estimated GFR-MDRD Greater than 90; Glucose 102 mg/dL (83-110); Potassium 3.2 mmol/L (3.5-5.1); Sodium 140 mmol/L (136-145)
[2018-10-21] MEDS: Dextrose 5 % And 0.9 % NaCl 1,000 ML IV SCH (08:44)
[2018-10-21] MEDS: LEVOBUNOLOL 0.5% EA EYE SCH (08:45)
[2018-10-21] MEDS: Amlodipine 5 MG TAB PO SCH (08:46)
[2018-10-21] MEDS: Famotidine/PF 20 mg/2ml Vial SLOW IVP SCH (08:46)
[2018-10-21] MEDS: Levothyroxine 100 MCG SDV IVP SCH (11:26)
[2018-10-21] MEDS: Enalaprilat Dihydrate 1.25 MG/ML VIAL SLOW IVP SCH (11:27)
[2018-10-21] MEDS ORDERED: Dextrose 5 % And 0.9 % NaCl 1,000 ML IV SCH (13:14)
[2018-10-21] MEDS ORDERED: NS 0.9% w/ 40 MEQ KCL 1,000 ML IV SCH (15:30)
[2018-10-21] MEDS: hydrALAZINE 20 MG/ML VIAL SLOW IVP PRN ×2 (17:59→20:57)
[2018-10-21] MEDS: Lorazepam 2 MG/ML VIAL SLOW IVP PRN (20:52)
--- NOTE | 2018-10-21 21:43 | PDOC.PN ---
- Subjective Encounter Start Date: 10/21/18 Encounter Start Time: 09:00 Patient seen and examined for med mngt. No new complaints. No overnight events - Objective MAR Reviewed: Yes Vital Signs & Weight: Vital Signs (12 hours) Temp Pulse Resp BP BP Pulse Ox 10/21/18 20:57 68 165/97 H 10/21/18 20:00 98.4 F 74 19 170/96 H 95 10/21/18 19:00 76 16 170/96 H 10/21/18 17:59 62 180/100 H 10/21/18 15:41 98.7 F 62 18 161/89 H 95 10/21/18 14:19 160/87 H 10/21/18 11:55 97.4 F L 59 L 18 151/84 H 97 10/21/18 11:27 151/85 H Weight Admit Weight 152 lb 12.485 oz Weight 138 lb 6 oz Most Recent Monitor Data Heart Rate from ECG 61 NIBP 127/89 NIBP BP-Mean 101 Respiration from ECG 17 SpO2 100 I&O: 10/20/18 10/21/18 10/22/18 06:59 06:59 06:59 Intake Total 1789 965 Output Total 1315 900 Balance 474 65 Result Diagrams: 10/22/18 04:38 10/22/18 04:38 Phys Exam - Physical Examination Constitutional: NAD Respiratory: no wheezing, no rhonchi Cardiovascular: RRR, no rub Gastrointestinal: soft, non-tender, positive bowel sounds Musculoskeletal: no edema Neurological: moves all 4 limbs Dx/Plan (1) Toxic metabolic encephalopathy Code(s): G92 - TOXIC ENCEPHALOPATHY Status: Acute (2) Hypertensive emergency Code(s): I16.1 - HYPERTENSIVE EMERGENCY Status: Acute Comment: off Cardene drip (3) Swallowing dysfunction Code(s): R13.10 - DYSPHAGIA, UNSPECIFIED Status: Acute (4) HLD (hyperlipidemia) Code(s): E78.5 - HYPERLIPIDEMIA, UNSPECIFIED Status: Chronic (5) Hypothyroidism Code(s): E03.9 - HYPOTHYROIDISM, UNSPECIFIED Status: Chronic (6) Hypokalemia Code(s): E87.6 - HYPOKALEMIA Status: Acute - Plan cont current plan of care, DVT proph w/SCDs Replace Potassium -: Adjust IVF -: Resume home meds -: DC IV Vasotec Review of Systems - Review of Systems Cardiovascular: negative: chest pain, palpitations, orthopnea, paroxysmal nocturnal dyspnea, edema, light headedness, other Gastrointestinal: negative: Nausea, Vomiting, Abdominal Pain, Diarrhea, Constipation, Melena, Hematochezia, Other - Medications/Allergies Allergies/Adverse Reactions: Allergies Allergy/AdvReac Type Severity Reaction Status Date / Time spironolactone Allergy Severe Verified 10/16/18 03:33 Tetracyclines Allergy Verified 10/16/18 03:33 Medications: Current Medications Acetaminophen (Tylenol) 650 mg PO Q6H PRN PRN Reason: Fever > 101 or Headache Acetaminophen (Tylenol) 650 mg [place] Q4H PRN PRN Reason: Headache/Fever or Pain Last Admin: 10/20/18 20:44 Dose: 650 mg Al Hydroxide/Mg Hydroxide (Maalox) 30 ml PO QIDPRN PRN PRN Reason: Dyspepsia Amlodipine Besylate (Norvasc) 5 mg PO DAILY [facility] Last Admin: 10/21/18 08:46 Dose: 5 mg Atorvastatin Calcium (Lipitor) 20 mg PO DAILY [facility] Benazepril HCl (Lotensin) 20 mg PO DAILY [facility] Hydralazine HCl (Apresoline) 10 mg SLOW IVP Q4H PRN PRN Reason: Sbp Greater Than 150 Last Admin: 10/21/18 20:57 Dose: 10 mg Potassium Chloride/Sodium Chloride (Ns 0.9% W/ 40 Meq Kcl) 1,000 mls @ 50 mls/ hr IV .Q20H [facility] Last Admin: 10/21/18 17:48 Dose: 1,000 mls Labetalol HCl (Normodyne) 10 mg SLOW IVP Q1H PRN PRN Reason: Systolic BP > 140 Last Admin: 10/20/18 20:43 Dose: 10 mg Levothyroxine Sodium (Synthroid) 50 mcg PO 0600 [facility] Levothyroxine Sodium (Synthroid) 100 mcg PO Q7D@0600 [facility] Lorazepam (Ativan) 0.25 mg SLOW IVP Q6H PRN PRN Reason: Anxiety/Agitation Last Admin: 10/21/18 20:52 Dose: 0.25 mg Magnesium Hydroxide (Milk Of Magnesium) 30 ml PO BIDPRN PRN PRN Reason: Constipation Mirabegron (Myrbetriq Er) 50 mg PO DAILY [facility] Morphine Sulfate (Morphine) 2 mg SLOW IVP Q4H PRN PRN Reason: Moderate to Severe Pain (6-10) Ondansetron HCl (Zofran) 4 mg IVP BIDPRN PRN PRN Reason: Nausea/Vomiting Pantoprazole Sodium (Protonix) 40 mg PO DAILY [facility] Levobunolol Ophthalmic Solution 0.5% 0 each EA EYE DAILY [facility] Last Admin: 10/21/18 08:45 Dose: 1 each Sodium Chloride (Flush - Normal Saline) 10 ml IVF PRN PRN PRN Reason: Saline Flush Last Admin: 10/21/18 08:48 Dose: 10 ml
[2018-10-22] MEDS: Labetalol HCl 100 MG/20 ML VIAL SLOW IVP PRN ×2 (01:02→06:10)
[2018-10-22] MEDS: Lorazepam 2 MG/ML VIAL SLOW IVP PRN (02:16)
[2018-10-22 05:34] LABS: Band 15 % (5-11); Eosinophils 3 % (0-10); Hemoglobin 12.9 g/dL (14.0-18.0); Lymphocytes 2 % (21-51); MDiff Complete? YES; Mean Corpuscular HGB CONC 33.8 g/dL (32.0-36.0); Mean Corpuscular Hemoglobin 30.6 pg (27.0-31.0); Mean Corpuscular Volume 90.5 fL (78.0-98.0); Monocytes 10 % (0-10); Neutrophil 70 % (42-75); Platelet Count 224 thou/uL (130-400); RBC Distribution Width 12.4 % (11.5-14.5); Red Blood Cell (RBC) Count 4.23 mill/uL (4.70-6.10); White Blood Cell (WBC) Count 11.7 thou/uL (4.8-10.8)
[2018-10-22] MEDS: Levothyroxine Sodium 50 MCG TAB PO SCH (05:57)
[2018-10-22 06:14] LABS: Anion Gap 15 mmol/L (10-20); BUN (Urea Nitrogen) 10 mg/dL (8.4-25.7); Calc. Creatinine Clearance 69 mL/min (70-130); Calcium 9.1 mg/dL (7.8-10.44); Carbon Dioxide 21 mmol/L (23-31); Chloride 104 mmol/L (98-107); Estimated GFR-MDRD Greater than 90; Glucose 102 mg/dL (83-110); Potassium 3.4 mmol/L (3.5-5.1); Sodium 137 mmol/L (136-145)
[2018-10-22] MEDS: Atorvastatin Calcium 20 MG TAB PO SCH (08:56)
[2018-10-22] MEDS: Amlodipine 5 MG TAB PO SCH (08:57)
[2018-10-22] MEDS: LEVOBUNOLOL 0.5% EA EYE SCH (08:59)
[2018-10-22] MEDS ORDERED: Non-Formulary Item 1 EACH (Lansoprazole [Lansoprazole] 30 MG) PO SCH (09:00)
[2018-10-22] MEDS ORDERED: Non-Formulary Item 1 EACH (Mirabegron [Myrbetriq] 50 MG) PO SCH (09:00)
[2018-10-22] MEDS ORDERED: Potassium Chloride 20 MEQ TAB PO SCH (09:45)
[2018-10-22 11:14] VITALS: BMI 19.3
--- NOTE | 2018-10-22 15:22 | RAD ---
MODIFIED BARIUM SWALLOW: HISTORY: Patient intracranial hemorrhage, dysphagia, feeding difficulties. FINDINGS: Radiation dosimetry is 2.1 minutes of fluoroscopy and AK of 4.0 mGy. Various consistencies of barium sulfate were given to the patient. Spot images obtained. There continues to be some vallecular and piriform sinus pooling with various consistencies. No defi nite evidence of significant aspiration seen. There was some minimal flash penetration with one epis ode with the thin barium; however, no other episodes of aspiration seen. IMPRESSION: Piriform sinus and vallecular contrast pooling. POS: [facility]
--- NOTE | 2018-10-22 20:31 | PDOC.PN ---
- Subjective Encounter Start Date: 10/22/18 Encounter Start Time: 20:29 Subjective: Seen and examined with no new complaint - Objective Vital Signs & Weight: Vital Signs (12 hours) Temp Pulse Pulse Resp BP BP BP 10/22/18 19:30 97.9 F 69 16 134/80 10/22/18 15:45 97.7 F 69 18 122/76 10/22/18 12:00 97.6 F 64 18 140/89 10/22/18 10:40 121/79 10/22/18 09:20 67 130/81 10/22/18 08:57 73 10/22/18 08:56 154/86 H Pulse Ox 10/22/18 19:30 95 10/22/18 15:45 96 10/22/18 12:00 95 10/22/18 10:40 10/22/18 09:20 10/22/18 08:57 10/22/18 08:56 Weight Admit Weight 152 lb 12.485 oz Weight 138 lb 6 oz Most Recent Monitor Data Heart Rate from ECG 61 NIBP 127/89 NIBP BP-Mean 101 Respiration from ECG 17 SpO2 100 I&O: 10/21/18 10/22/18 10/23/18 06:59 06:59 06:59 Intake Total 965 510 Output Total 3100 Balance -2135 510 Result Diagrams: 10/22/18 04:38 10/22/18 04:38 Phys Exam - Physical Examination Constitutional: NAD HEENT: PERRLA, moist MMs, sclera anicteric, TM's clear, oral pharynx no lesions Neck: no nodes, no JVD, supple, full ROM Respiratory: no wheezing, no rales, no rhonchi Cardiovascular: RRR, no significant murmur, no rub Gastrointestinal: soft, non-tender, no distention, positive bowel sounds Dx/Plan (1) Hypertensive emergency Code(s): I16.1 - HYPERTENSIVE EMERGENCY Status: Acute Comment: off Cardene drip (2) Hypokalemia Code(s): E87.6 - HYPOKALEMIA Status: Acute (3) Swallowing dysfunction Code(s): R13.10 - DYSPHAGIA, UNSPECIFIED Status: Acute (4) Toxic metabolic encephalopathy Code(s): G92 - TOXIC ENCEPHALOPATHY Status: Acute (5) HLD (hyperlipidemia) Code(s): E78.5 - HYPERLIPIDEMIA, UNSPECIFIED Status: Chronic (6) Hypothyroidism Code(s): E03.9 - HYPOTHYROIDISM, UNSPECIFIED Status: Chronic - Plan plan discussed w/ family, PT/OT, director social service, speech therapy MBS today--patient didnt do too good-cont with current diet -: Dispo planning * .
[2018-10-23] MEDS ORDERED: Amlodipine 5 MG TAB PO PRN (03:23)
[2018-10-23 05:25] LABS: Band 3 % (5-11); Hemoglobin 13.1 g/dL (14.0-18.0); Lymphocytes 6 % (21-51); MDiff Complete? YES; Mean Corpuscular Hemoglobin 30.2 pg (27.0-31.0); Mean Corpuscular Volume 91.5 fL (78.0-98.0); Mean Platelet Volume 8.9 fL (7.4-10.4); Monocytes 3 % (0-10); Neutrophil 87 % (42-75); Platelet Count 259 thou/uL (130-400); Platelet Morphology Comment Appears Adequate; RBC Distribution Width 12.5 % (11.5-14.5); RBC Morphology Normal; Reactive Lymphocytes 1 % (0-10); Red Blood Cell (RBC) Count 4.33 mill/uL (4.70-6.10); White Blood Cell (WBC) Count 13.6 thou/uL (4.8-10.8)
[2018-10-23 05:30] LABS: Anion Gap 15 mmol/L (10-20); BUN (Urea Nitrogen) 13 mg/dL (8.4-25.7); Calc. Creatinine Clearance 59 mL/min (70-130); Calcium 9.5 mg/dL (7.8-10.44); Carbon Dioxide 25 mmol/L (23-31); Chloride 101 mmol/L (98-107); Estimated GFR-MDRD 87; Glucose 95 mg/dL (83-110); Potassium 3.8 mmol/L (3.5-5.1); Sodium 137 mmol/L (136-145)
[2018-10-23] MEDS: Levothyroxine Sodium 50 MCG TAB PO SCH (06:49)
[2018-10-23] MEDS: Atorvastatin Calcium 20 MG TAB PO SCH (09:19)
[2018-10-23] MEDS: LEVOBUNOLOL 0.5% EA EYE SCH (09:19)
[2018-10-23] MEDS: Amlodipine 5 MG TAB PO SCH (09:20)
--- NOTE | 2018-10-23 13:40 | PDOC.PN ---
- Subjective Encounter Start Date: 10/23/18 Encounter Start Time: 13:38 Subjective: Seen and examined no new complaint - Objective Vital Signs & Weight: Vital Signs (12 hours) Temp Pulse Pulse Resp BP BP BP 10/23/18 11:46 98.4 F 72 20 142/89 H 10/23/18 11:25 76 151/87 H 10/23/18 09:20 72 10/23/18 09:19 145/90 H 10/23/18 07:52 98.3 F 72 20 145/90 H 10/23/18 04:55 98.0 F 74 16 139/86 Pulse Ox 10/23/18 11:46 100 10/23/18 11:25 10/23/18 09:20 10/23/18 09:19 10/23/18 07:52 94 L 10/23/18 04:55 97 Weight Admit Weight 152 lb 12.485 oz Weight 138 lb 6 oz Most Recent Monitor Data Heart Rate from ECG 61 NIBP 127/89 NIBP BP-Mean 101 Respiration from ECG 17 SpO2 100 I&O: 10/22/18 10/23/18 10/24/18 06:59 06:59 06:59 Intake Total 965 610 125 Output Total 3100 10 Balance -2135 600 125 Result Diagrams: 10/23/18 04:33 10/23/18 04:33 Phys Exam - Physical Examination Constitutional: NAD HEENT: PERRLA, moist MMs, sclera anicteric, TM's clear Neck: no nodes, no JVD, supple Respiratory: no wheezing, no rales, no rhonchi, clear to auscultation bilateral Cardiovascular: RRR, no significant murmur, no rub Gastrointestinal: soft, non-tender, no distention, positive bowel sounds Musculoskeletal: no edema, pulses present Dx/Plan (1) Hypertensive emergency Code(s): I16.1 - HYPERTENSIVE EMERGENCY Status: Acute Comment: off Cardene drip (2) Hypokalemia Code(s): E87.6 - HYPOKALEMIA Status: Acute (3) Swallowing dysfunction Code(s): R13.10 - DYSPHAGIA, UNSPECIFIED Status: Acute (4) Toxic metabolic encephalopathy Code(s): G92 - TOXIC ENCEPHALOPATHY Status: Acute (5) HLD (hyperlipidemia) Code(s): E78.5 - HYPERLIPIDEMIA, UNSPECIFIED Status: Chronic (6) Hypothyroidism Code(s): E03.9 - HYPOTHYROIDISM, UNSPECIFIED Status: Chronic - Plan plan discussed w/ family, PT/OT, social media sr strategy manager Didnt do too good with MBS-continue current diet -: Elevated wbc possibly hemoconcentration as all the 3 cell lines are trendin -: up * .
[2018-10-24 05:11] LABS: Band 5 % (5-11); Eosinophils 3 % (0-10); Hemoglobin 12.6 g/dL (14.0-18.0); Lymphocytes 10 % (21-51); MDiff Complete? YES; Mean Corpuscular HGB CONC 32.4 g/dL (32.0-36.0); Mean Corpuscular Hemoglobin 29.7 pg (27.0-31.0); Mean Corpuscular Volume 91.7 fL (78.0-98.0); Mean Platelet Volume 8.9 fL (7.4-10.4); Monocytes 8 % (0-10); Neutrophil 74 % (42-75); Platelet Count 335 thou/uL (130-400); Platelet Morphology Comment Appears Adequate; RBC Distribution Width 12.3 % (11.5-14.5); Red Blood Cell (RBC) Count 4.24 mill/uL (4.70-6.10); White Blood Cell (WBC) Count 15.8 thou/uL (4.8-10.8)
[2018-10-24] MEDS: Levothyroxine Sodium 50 MCG TAB PO SCH (05:17)
[2018-10-24 05:25] LABS: Anion Gap 16 mmol/L (10-20); BUN (Urea Nitrogen) 14 mg/dL (8.4-25.7); Calc. Creatinine Clearance 53 mL/min (70-130); Calcium 9.3 mg/dL (7.8-10.44); Carbon Dioxide 24 mmol/L (23-31); Chloride 100 mmol/L (98-107); Estimated GFR-MDRD 77; Glucose 97 mg/dL (83-110); Potassium 3.6 mmol/L (3.5-5.1); Sodium 136 mmol/L (136-145)
[2018-10-24] MEDS: LEVOBUNOLOL 0.5% EA EYE SCH (10:00)
[2018-10-24] MEDS: Atorvastatin Calcium 20 MG TAB PO SCH (10:01)
[2018-10-24] MEDS ORDERED: Temazepam 15 MG CAP PO PRN (12:20)
[2018-10-24] MEDS: Amlodipine 5 MG TAB PO SCH (12:48)
--- NOTE | 2018-10-24 13:08 | PRG ---
DATE OF SERVICE: 10/24/2018 SUBJECTIVE: The patient is seen and examined at bedside. His and his daughter are present in the room during my visit. They noticed that he is quite sedated in the morning after he gets Ativan and Seroquel the night before and they are asking to make some changes in his regimen. The patient's appetite is good. OBJECTIVE: VITAL SIGNS: Blood pressure is 102/76, and this morning blood pressure went down to 98/68; temperature is 97.9; pulse is 73; respiratory rate 12; O2 saturation is 94%. HEENT: His head is atraumatic and normocephalic. He does not follow my commands. He is confused. His speech is very random. LUNGS: Clear. HEART: S1 and S2 normal. ABDOMEN: Soft, nondistended. EXTREMITIES: No clubbing, cyanosis, or edema. NEUROLOGICAL: He is able to move his all four extremities. There are no any motor deficits. He has good strength in upper and lower extremities. He is not in a good contact with him. He is not able to read. LABORATORY DATA: White count of 15.8, hematocrit 38.9, hemoglobin 12.6, 74% of neutrophils. Normal chemistry. IMPRESSION: 1. A left temporal lobe hemorrhage with surrounding edema based on CT scan. 2. Encephalopathy related to #1. 3. Elevated white count of unclear etiology. The patient does not have any signs of infection. 4. Hypokalemia, corrected. 5. Swallowing dysfunction, status post modification of diet. 6. Hyperlipidemia. 7. Hypothyroidism. PLAN: Plan is to lower his amlodipine dose to 2.5 mg starting tomorrow since his blood pressure is running on the lower side today. Also, I am going to stop his Seroquel and Ativan since he is very sedated in the morning, I am going to use just Restoril. We will continue PT and OT and apparently he is screened for rehab and we are waiting for insurance to give us a green light. Job ID: [id number]
[2018-10-24] MEDS ORDERED: clonazePAM 0.5 MG TAB PO SCH (23:15)
[2018-10-25] MEDS: Levothyroxine Sodium 50 MCG TAB PO SCH (05:51)
[2018-10-25 06:44] LABS: Anion Gap 18 mmol/L (10-20); BUN (Urea Nitrogen) 16 mg/dL (8.4-25.7); Calc. Creatinine Clearance 58 mL/min (70-130); Calcium 9.1 mg/dL (7.8-10.44); Carbon Dioxide 25 mmol/L (23-31); Chloride 99 mmol/L (98-107); Estimated GFR-MDRD 85; Glucose 102 mg/dL (83-110); Magnesium 1.6 mg/dL (1.6-2.6); Potassium 3.8 mmol/L (3.5-5.1); Sodium 138 mmol/L (136-145)
[2018-10-25 06:45] LABS: Band 3 % (5-11); Eosinophils 3 % (0-10); Hemoglobin 12.3 g/dL (14.0-18.0); Hypochromia SLIGHT = 6-15 cells (100X) (0-5/hpf); Lymphocytes 10 % (21-51); MDiff Complete? YES; Mean Corpuscular HGB CONC 33.8 g/dL (32.0-36.0); Mean Corpuscular Volume 91.8 fL (78.0-98.0); Mean Platelet Volume 8.8 fL (7.4-10.4); Monocytes 11 % (0-10); Neutrophil 73 % (42-75); Platelet Count 311 thou/uL (130-400); Platelet Morphology Comment Appears Adequate; RBC Distribution Width 12.1 % (11.5-14.5); Red Blood Cell (RBC) Count 3.98 mill/uL (4.70-6.10); White Blood Cell (WBC) Count 12.5 thou/uL (4.8-10.8)
[2018-10-25] MEDS: LEVOBUNOLOL 0.5% EA EYE SCH (09:19)
[2018-10-25] MEDS: Amlodipine 5 MG TAB PO SCH (09:21)
[2018-10-25] MEDS: Atorvastatin Calcium 20 MG TAB PO SCH (09:22)
--- NOTE | 2018-10-25 09:46 | RAD ---
RADIOGRAPH CHEST 1 VIEW: Date: 10/25/2018. Time: 7:04 a.m. HISTORY: An 82-year-old male with dyspnea and leukocytosis. COMPARISON: No prior chest radiographs are available. FINDINGS: Mild infiltrate-like densities, at right medial base, and left lower lung zone encroaching upon the l eft mid lung zone. No cardiomegaly. No pulmonary edema or pulmonary venous engorgement. No pneumot horax. IMPRESSION: 1. Nonspecific mild pulmonary densities in the bilateral lower lung zones, left greater than right. 2. Without prior studies, it is difficult to determine whether these are acute infiltrates or chroni c. 3. Recommend followup. ROSARIO [] POS: [facility]
[2018-10-25] MEDS ORDERED: Temazepam 15 MG CAP PO PRN (14:39)
[2018-10-25] MEDS: Azithromycin 250 MG TAB PO SCH ×2 (14:44→20:35)
--- NOTE | 2018-10-25 14:45 | PRG ---
DATE OF SERVICE: 10/25/2018 SUBJECTIVE: The patient is seen and examined at the bedside. Apparently, he received clonazepam last night, because Restoril did not really help much. OBJECTIVE: VITAL SIGNS: Blood pressure is 109/72, pulse is 66, temperature is 98, respiratory rate is 16, and O2 saturation is 96% on room air. LUNGS: Clear. HEART: S1, S2 normal. No S3. No S4. No any murmur. ABDOMEN: Soft, nontender. Bowel sounds are present. No organomegaly. EXTREMITIES: No clubbing, cyanosis, or edema. NEUROLOGIC: He follows my commands. His mentation is improved since yesterday. There is some communication possible with him today. Plan, it looks like his altered mental status was partially caused by medications he was taking and as soon as medications were stopped, his mental function improved. We will try to avoid any Seroquel or Ativan, we might need some clonazepam tonight. His white count is down to 12.5 today, hemoglobin 12.3, hematocrit 36.5, and platelet count is 311. Chemistry is within normal limits. Chest x-ray showed nonspecific mild pulmonary densities in the bilateral lower lung zones, left greater than right of unclear chronicity since we do not have any previous x-ray on this patient. IMPRESSION: 1. Left temporal lobe hemorrhage with surrounding edema based on CT scan of the brain. 2. Encephalopathy, somewhat improved since the medications were stopped. 3. Elevated white count with some low-grade temperature 2 days ago and some unclear etiology of pulmonary findings. We will start him on some azithromycin. 4. Hypokalemia, corrected. 5. Swallowing dysfunction, status post modification of diet. 6. Hyperlipidemia. 7. Hypothyroidism. PLAN: Plan is to avoid Seroquel and Ativan. We might use some clonazepam along with Restoril to help him rest at night. We will start azithromycin and he will be transferred to rehab as soon as his transfer is arranged and accepted by insurance company and we will continue PT and OT. Job ID: [id number]
[2018-10-26] MEDS: Levothyroxine Sodium 50 MCG TAB PO SCH (06:04)
[2018-10-26 06:18] LABS: Band 14 % (5-11); Eosinophils 3 % (0-10); Hemoglobin 13.1 g/dL (14.0-18.0); Lymphocytes 14 % (21-51); MDiff Complete? YES; Mean Corpuscular HGB CONC 32.6 g/dL (32.0-36.0); Mean Corpuscular Hemoglobin 29.9 pg (27.0-31.0); Mean Corpuscular Volume 91.7 fL (78.0-98.0); Mean Platelet Volume 8.9 fL (7.4-10.4); Monocytes 5 % (0-10); Neutrophil 64 % (42-75); Nucleated RBC 1 % (0); Platelet Count 374 thou/uL (130-400); Platelet Morphology Comment Appears Adequate; Red Blood Cell (RBC) Count 4.38 mill/uL (4.70-6.10); White Blood Cell (WBC) Count 13.1 thou/uL (4.8-10.8)
[2018-10-26 06:36] LABS: Anion Gap 14 mmol/L (10-20); BUN (Urea Nitrogen) 17 mg/dL (8.4-25.7); Calc. Creatinine Clearance 53 mL/min (70-130); Calcium 9.8 mg/dL (7.8-10.44); Carbon Dioxide 28 mmol/L (23-31); Chloride 99 mmol/L (98-107); Estimated GFR-MDRD 76; Glucose 95 mg/dL (83-110); Potassium 3.9 mmol/L (3.5-5.1); Sodium 137 mmol/L (136-145)
[2018-10-26] MEDS ORDERED: Azithromycin 250 MG TAB PO SCH (09:00)
[2018-10-26] MEDS: Amlodipine 5 MG TAB PO SCH (10:02)
[2018-10-26] MEDS: Atorvastatin Calcium 20 MG TAB PO SCH (10:06)
[2018-10-26] MEDS: LEVOBUNOLOL 0.5% EA EYE SCH (10:06)
[2018-10-26] MEDS ORDERED: clonazePAM 0.5 MG TAB PO PRN (12:15)
--- NOTE | 2018-10-26 13:58 | PRG ---
DATE OF SERVICE: 10/26/2018 SUBJECTIVE: The patient had quite rough night. He had some most likely hallucinations from Restoril that he was giving last night for sleep help, and today around 12:00, he had a syncopal episode. Apparently, he was on his walker and he lost consciousness while getting PT. The monitoring did not show any cardiac abnormalities during this time, so he is set up for a followup CT of the brain since he is admitted with acute cerebral hemorrhage. OBJECTIVE: VITAL SIGNS: Blood pressure is 133/82, pulse is 66, temperature is 99.0, respirations 14, O2 saturation 95% on room air. He does not follow my commands. His pupils responded to light properly. Conjunctivae are pinkish. LUNGS: Clear. HEART: S1 and S2, normal. No S3. No S4. ABDOMEN: Soft, nondistended. EXTREMITIES: No clubbing, cyanosis, or edema. NEUROLOGICAL: As I mentioned above, he follows my commands sporadically. He move his four extremities. There is no any focal deficit. LABORATORY DATA: Labs showed white count of 13.1, hemoglobin of 13.1, hematocrit 40.2, and platelet count 374,000. Normal chemistry. IMPRESSION: 1. Left temporal lobe hemorrhage with surrounding edema based on CT scan of the brain. 2. Syncopal episode today of unclear etiology without any cardiac abnormalities with normal echocardiogram and no changes in his cardiac rate or rhythm. 3. Elevated white cell count with low-grade temperature with some positive mild findings on the chest x-ray suggestive of possible infection. Since we were not able to get urinalysis on him, I am going to increase the spectrum for antibiotic and we will switch him from azithromycin to levofloxacin to cover possible urinary tract pathogens. Obtain CT of the brain and we will see whether this has anything to do with the syncopal episode he just had. I am going to stop his Restoril since he had bad reaction to it and use clonazepam as needed since he responded nicely to clonazepam the night before. We are awaiting for the rehabilitation stay to be approved by the insurance company. Job ID: [id number]
--- NOTE | 2018-10-26 15:10 | CT ---
CT HEAD NONCONTRAST: Date: 10/26/18 HISTORY: Syncope. Recent hemorrhage. COMPARISON: 10/20/18. FINDINGS: Vasogenic edema surrounding the left temporal lobe intraparenchymal hematoma has increased slightly, now with slightly more effacement of the left lateral ventricle. Septum pellucidum is shifted rightwa rd by 0.5 cm. The hematoma itself is less focal and slightly more diffuse. No enlargement. No new areas of hemorrhage. Dystrophic calcification and chronic ischemic changes are stable. IMPRESSION: Interval evolution of the left temporal lobe intraparenchymal hematoma with slight interval increase in vasogenic edema surrounding it. No new abnormalities are demonstrated. POS: [facility]
[2018-10-27] MEDS: Acetaminophen 325 MG TAB PO PRN (03:41)
[2018-10-27] MEDS: Levothyroxine Sodium 50 MCG TAB PO SCH (06:03)
[2018-10-27 06:44] LABS: Anion Gap 13 mmol/L (10-20); BUN (Urea Nitrogen) 21 mg/dL (8.4-25.7); Calc. Creatinine Clearance 51 mL/min (70-130); Calcium 9.6 mg/dL (7.8-10.44); Carbon Dioxide 26 mmol/L (23-31); Chloride 101 mmol/L (98-107); Estimated GFR-MDRD 73; Glucose 113 mg/dL (83-110); Magnesium 1.8 mg/dL (1.6-2.6); Potassium 4.1 mmol/L (3.5-5.1); Sodium 136 mmol/L (136-145)
[2018-10-27] MEDS: Atorvastatin Calcium 20 MG TAB PO SCH (10:09)
[2018-10-27] MEDS: LEVOBUNOLOL 0.5% EA EYE SCH (10:10)
[2018-10-27] MEDS: Amlodipine 5 MG TAB PO SCH (10:10)
--- NOTE | 2018-10-27 13:22 | PDOC.PN ---
- Subjective Encounter Start Date: 10/27/18 Encounter Start Time: 13:21 Mr. Wetzel was seen today in follow-up of intracranial hemorrhage. He is confused and aphasic. However he was less agitated last night, and was able to rest without medication. - Objective MAR Reviewed: Yes Vital Signs & Weight: Vital Signs (12 hours) Temp Pulse Pulse Pulse Pulse Pulse Resp 10/27/18 12:00 96.4 F L 60 16 10/27/18 10:10 56 L 10/27/18 09:24 73 64 63 62 10/27/18 07:59 97.7 F 56 L 20 10/27/18 03:49 98.7 F 65 16 BP BP BP BP BP BP Pulse Ox 10/27/18 12:00 103/73 94 L 10/27/18 10:10 131/80 10/27/18 09:24 83/59 L 92/60 100/76 117/78 10/27/18 07:59 104/71 94 L 10/27/18 03:49 109/71 95 Weight Admit Weight 152 lb 12.485 oz Weight 139 lb 11.2 oz Most Recent Monitor Data Heart Rate from ECG 61 NIBP 127/89 NIBP BP-Mean 101 Respiration from ECG 17 SpO2 100 I&O: 10/26/18 10/27/18 10/28/18 06:59 06:59 06:59 Intake Total 300 116 Balance 300 116 Result Diagrams: 10/26/18 05:04 10/27/18 05:59 Phys Exam - Physical Examination HEENT: PERRLA Respiratory: no wheezing, no rales, no rhonchi, clear to auscultation bilateral Cardiovascular: RRR, no significant murmur, no rub Gastrointestinal: soft, non-tender, positive bowel sounds Musculoskeletal: no edema Neurological: moves all 4 limbs expressive aphasia Dx/Plan (1) ICH (intracerebral hemorrhage) Code(s): I61.9 - NONTRAUMATIC INTRACEREBRAL HEMORRHAGE, UNSPECIFIED Status: Acute (2) Hypertension Code(s): I10 - ESSENTIAL (PRIMARY) HYPERTENSION Status: Chronic (3) Prostate cancer Code(s): C61 - MALIGNANT NEOPLASM OF PROSTATE Status: Chronic (4) Hypothyroidism Code(s): E03.9 - HYPOTHYROIDISM, UNSPECIFIED Status: Chronic - Plan * ICH- likely the result of HTN or Amyloid Angiopathy- continue conservative treatment * HTN- blood pressure is controlled * Hypothyroidism- stable * Metabolic encephalopathy ( agitation from the CVA) improving * Awaiting Rehab placement.
[2018-10-28] MEDS: Acetaminophen 325 MG TAB PO PRN (03:08)
[2018-10-28] MEDS ORDERED: Levothyroxine Sodium 100 MCG TAB PO SCH (06:00)
[2018-10-28] MEDS: Levothyroxine Sodium 50 MCG TAB PO SCH (07:03)
[2018-10-28] MEDS: Atorvastatin Calcium 20 MG TAB PO SCH (08:30)
[2018-10-28] MEDS: LEVOBUNOLOL 0.5% EA EYE SCH (08:31)
[2018-10-28] MEDS ORDERED: Levothyroxine Sodium 50 MCG TAB PO SCH (09:00)
[2018-10-28] MEDS: Amlodipine 5 MG TAB PO SCH (10:04)
[2018-10-28 11:53] VITALS: BP 138/77; TEMP 98.1
--- NOTE | 2018-10-28 11:53 | PDOC.PN ---
- Subjective Encounter Start Date: 10/28/18 Encounter Start Time: 11:52 Mr. Wetzel was seen today in follow-up of ICH. He is aphasic, but does not have any new complaints. - Objective MAR Reviewed: Yes Vital Signs & Weight: Vital Signs (12 hours) Temp Pulse Pulse Pulse Pulse Resp BP 10/28/18 10:04 62 131/80 10/28/18 08:55 59 L 61 67 10/28/18 08:00 97.7 F 62 16 10/28/18 04:00 97.4 F L 69 19 10/28/18 00:00 97.8 F 63 19 BP BP BP BP Pulse Ox 10/28/18 10:04 10/28/18 08:55 123/78 98/79 79/62 L 10/28/18 08:00 119/87 93 L 10/28/18 04:00 105/49 L 99 10/28/18 00:00 123/81 96 Weight Admit Weight 152 lb 12.485 oz Weight 139 lb 11.2 oz Most Recent Monitor Data Heart Rate from ECG 61 NIBP 127/89 NIBP BP-Mean 101 Respiration from ECG 17 SpO2 100 I&O: 10/27/18 10/28/18 10/29/18 06:59 06:59 06:59 Intake Total 116 100 Balance 116 100 Result Diagrams: 10/26/18 05:04 10/27/18 05:59 Phys Exam - Physical Examination HEENT: PERRLA Respiratory: no wheezing, no rales, no rhonchi, clear to auscultation bilateral Cardiovascular: RRR, no significant murmur, no rub Gastrointestinal: soft, non-tender, no distention, positive bowel sounds Musculoskeletal: no edema Dx/Plan (1) ICH (intracerebral hemorrhage) Code(s): I61.9 - NONTRAUMATIC INTRACEREBRAL HEMORRHAGE, UNSPECIFIED Status: Acute (2) Hypertension Code(s): I10 - ESSENTIAL (PRIMARY) HYPERTENSION Status: Chronic (3) Prostate cancer Code(s): C61 - MALIGNANT NEOPLASM OF PROSTATE Status: Chronic (4) Hypothyroidism Code(s): E03.9 - HYPOTHYROIDISM, UNSPECIFIED Status: Chronic - Plan * ICH- continue PT/OT and Speech Therapy * HTN- blood pressure has been a bit labile- will place parameters on Amlodipine - to hold when SBP is less than 110 * He is stable for transfer to Rehab
--- NOTE | 2018-10-28 16:59 | DIS ---
DATE OF ADMISSION: 10/15/2018 DATE OF DISCHARGE: 10/28/2018 DISCHARGE DISPOSITION: Inpatient rehab. DISCHARGE DIAGNOSES: 1. Acute intracranial hemorrhage due to either hypertension or amyloid angiopathy. 2. Hypertension. 3. Metabolic encephalopathy secondary to acute intracranial hemorrhage, resolved. 4. Hypothyroidism. 5. History of prostate cancer. DISCHARGE MEDICATIONS: Include; 1. Levaquin 500 mg daily. 2. Klonopin 0.5 mg daily as needed. 3. Benazepril 20 mg daily, hold for systolic blood pressure less than 110. 4. Amlodipine 2.5 mg daily, also hold for systolic blood pressure less than 110. 5. Myrbetriq 50 mg daily. 6. Synthroid 150 mcg daily. 7. Lansoprazole 30 mg daily. 8. Calcium plus vitamin D two tablets daily. 9. Atorvastatin 20 mg daily. PROCEDURES DONE DURING ADMISSION: The patient had a CT scan of the brain demonstrating an acute left temporal intra-axial hematoma with mild local mass effect. There is questionable small left thalamic hemorrhage versus calcification. The patient also had an MR angiogram and MRI of the brain. The MR angiogram showed patent superior sagittal sinus as well as straight sinus. Internal cerebral cortical veins were unremarkable. There is no venous thrombosis. MRI of the brain showed a large intraparenchymal hemorrhage in the left temporal lobe. CTA of the [place] showed no evidence of vascular malformation or aneurysm. The patient had an echocardiogram, which the ejection fraction was estimated at 60% to 65%. There was normal size of the left ventricle and normal left atrial size. CODE STATUS: Full code. ALLERGIES: TO SPIRONOLACTONE AND TETRACYCLINE. HOSPITAL COURSE: Mr. Wetzel is a pleasant 82-year-old gentleman, who was brought to the hospital after he was noted to be altered. He was found to have an extremely elevated blood pressure and CT scan of the brain demonstrated a left intraventricular or intracerebral hemorrhage. He was placed in the ICU on a Cardene drip by Neurosurgery. It was felt that this would be best managed conservatively. The Hospitalist Service was consulted for medical management. Blood pressure was eventually able to be controlled with amlodipine and benazepril. His metabolic encephalopathy improved over the course of the next few days. He did have a significant expressive aphasia, however, and had to have a modified diet for swallowing. He was subsequently transferred to inpatient rehab primarily for more speech and cognitive therapy as his motor deficits were minimal and continued monitoring of his blood pressure. Job ID: [id number]
== END 2018-10-28 15:30 | DRG 64 ==
LOC: ERS 20:51 → CCU 22:03 → 2SE 10-19 16:08
PROVIDERS: ADMIT Internal Medicine; ATTEND Internal Medicine
DX: I61.2 Nontraumatic intracerebral hemorrhage in hemisphere, unspecified (principal); G92 Toxic encephalopathy; R47.01 Aphasia; I16.1 Hypertensive emergency; R13.10 Dysphagia, unspecified; R40.2412 Glasgow coma scale score 13-15, at arrival to emergency department; R29.704 NIHSS score 4; C61 Malignant neoplasm of prostate; I10 Essential (primary) hypertension; E87.6 Hypokalemia; E03.9 Hypothyroidism, unspecified; E78.5 Hyperlipidemia, unspecified; Z79.899 Other long term (current) drug therapy; Z88.1 Allergy status to other antibiotic agents
CPT/HCPCS: 36415; 36416; 70450; 70496; 70498; 70544; 70553; 71045; 74230; 80048; 80053; 82550; 83735; 84484; 85007; 85025; 85027; 85610; 85730; 93005; 93306; 96365; 96366; 96375; 96376; J0131; J0360; J2060; J3480; J7050; Q9967; S0028

== ENCOUNTER 2018-11-26 12:33 | Outpatient (CLI) | payer MEDICARE ==
--- NOTE | 2018-11-26 14:30 | CT ---
CT BRAIN: HISTORY: History of stroke with hemorrhage. FINDINGS: Noncontrast-enhanced CT images of the brain obtained. Comparison is made to previous exam from 2018. CT images demonstrate previously noted large intraparenchymal left temporal lobe hematoma to be resol ving. There is now less mass effect and resolution of the previously noted [id number] midline regino ft. The left temporal lobe intracerebellar hematoma continues to resolve. Surrounding vasogenic edwin ma is seen, but less pronounced. No evidence of subdural hematoma is seen. Some vertebrobasilar dolechoectasia is seen. IMPRESSION: Continued resolution of left temporal lobe intraparenchymal hematoma. No evidence of acute intracran ial abnormality is seen. POS: [facility]
== END 2018-11-26 12:34 | disposition home or self-care (01) ==
LOC: TBSIIMAG 12:33
PROVIDERS: ATTEND Neurological Surgery
DX: R51 Headache (principal); S06.2X0D Diffuse traumatic brain injury without loss of consciousness, subsequent encounter
CPT/HCPCS: 70450

== ENCOUNTER 2018-12-13 15:42 | Inpatient (IN) | payer MEDICARE ==
[2018-12-13 16:33] LABS: #Basophils 0.1 thou/uL (0.0-0.2); #Eosinphils 0.4 thou/uL (0.0-0.7); #Lymphocytes 1.2 thou/uL (1.20-3.40); #Monocytes 0.7 thou/uL (0.11-0.59); #Neutrophils 7.7 thou/uL (1.40-6.50); %Basophils 0.6 % (0.0-1.0); %Eosinophils 3.8 % (0.0-10.0); %Lymphocytes 11.8 % (21.0-51.0); %Monocytes 7.1 % (0.0-10.0); %Neutrophils 76.8 % (42.0-75.0); Hemoglobin 13.6 g/dL (14.0-18.0); Mean Corpuscular HGB CONC 33.3 g/dL (32.0-36.0); Mean Corpuscular Volume 93.1 fL (78.0-98.0); Mean Platelet Volume 9.2 fL (7.4-10.4); Platelet Count 228 thou/uL (130-400); RBC Distribution Width 13.3 % (11.5-14.5); Red Blood Cell (RBC) Count 4.38 mill/uL (4.70-6.10)
[2018-12-13 16:41] LABS: Bilirubin Negative (Negative); Blood, Urine Negative (Negative); Clarity CLEAR (Clear); Glucose, Urine (Dipstick) Negative (Negative); Leukocyte Negative (Negative); Nitrite Negative (Negative); Protein, Urine (Dipstick) Negative (Neg-Trace); Urobilinogen 0.2 mg/dL (0.2-1.0)
[2018-12-13 16:42] LABS: PTT 29.3 SEC (22.9-36.1); Prothrombin Time 13.1 SEC (12.0-14.7)
--- NOTE | 2018-12-13 16:42 | RAD ---
CHEST ONE VIEW: History: History of stroke, headache. Comparison: 11-10-18 FINDINGS: Heart size is within normal limits. There is some old granuloma calcifications. Probable hiatal daina ia. No confluent pneumonia, overt edema, or pleural effusion . IMPRESSION: No significant acute intrathoracic disease. Evidence for a hiatal hernia. Old granulomatous disease. Atherosclerosis of the aorta. POS: [facility]
[2018-12-13 16:53] LABS: ALT (SGPT) 20 U/L (8-55); AST (SGOT) 23 U/L (5-34); Albumin 4.4 g/dL (3.4-4.8); Alkaline Phosphatase 92 U/L (40-150); Anion Gap 15 mmol/L (10-20); BUN (Urea Nitrogen) 25 mg/dL (8.4-25.7); Bilirubin, Total 0.4 mg/dL (0.2-1.2); Calc. Creatinine Clearance 0 mL/min (70-130); Carbon Dioxide 23 mmol/L (23-31); Chloride 106 mmol/L (98-107); Estimated GFR-MDRD 67; Globulin 3.4 g/dL (2.4-3.5); Glucose 105 mg/dL (83-110); Potassium 4.2 mmol/L (3.5-5.1); Protein, Total 7.8 g/dL (5.8-8.1); Sodium 140 mmol/L (136-145)
--- NOTE | 2018-12-13 16:56 | CT ---
BRAIN CT WITHOUT IV CONTRAST: History: Altered mental status. History of CVA and intracranial hemorrhage. Comparison: 11-26-18 FINDINGS: There is chronic white matter ischemic change noted. Stable scattered calcifications. There is an abn ormal low attenuation focus in the left temporal lobe which is decreased in size from the prior study , evidence for resolving prior left temporal lobe hemorrhage. No new hemorrhage. IMPRESSION: Stable atrophy and chronic white matter ischemic changes. Resolving left temporal lobe old anterior p arenchymal hemorrhage. No new mass or new hemorrhage. POS: [facility]
[2018-12-13 18:06] LABS: Amphetamine Not Detected (NotDetected); Barbiturates Screen Not Detected (NotDetected); Benzodiazepine Screen Not Detected (NotDetected); Cocaine Metabolite Screen Not Detected (NotDetected); Medtox Control Line Valid? VALID (VALID); Medtox Reader # READER 4; Methadone Not Detected (NotDetected); Methamphetamine Not Detected (NotDetected); Opiate Screen Not Detected (NotDetected); Oxycodone Screen Not Detected (NotDetected); Phencyclidine (PCP) Not Detected (NotDetected); THC/Cannabinoid Screen Not Detected (NotDetected); Tricyclic Screen Detected (NotDetected)
[2018-12-13 18:10] LABS: Acetaminophen Less than 6.0 mcg/mL (10.0-30.0); Alcohol Less than 10 mg/dL (Less than 10); CK (CPK) 67 U/L (30-200); Salicylate Less than 8.0 mg/dL (15.0-30.0)
[2018-12-13] MEDS ORDERED: Acetaminophen 325 MG TAB PO PRN (19:09)
[2018-12-13] MEDS ORDERED: Ondansetron PF 4 MG/2 ML Vial IVP PRN (19:09)
[2018-12-13] MEDS ORDERED: Ondansetron ODT 4 MG TAB SL PRN (19:09)
[2018-12-13] MEDS ORDERED: Haloperidol Lactate 5 MG/ML VIAL IM SCH (19:15)
[2018-12-13] MEDS ORDERED: Mirtazapine 15 MG TAB PO SCH (22:30)
[2018-12-13] MEDS ORDERED: clonazePAM 0.5 MG TAB PO SCH (22:30)
[2018-12-13] MEDS ORDERED: cloNIDine 0.1 MG TAB PO PRN (23:11)
[2018-12-13] MEDS ORDERED: Labetalol HCl 100 MG/20 ML VIAL SLOW IVP PRN (23:11)
[2018-12-13] MEDS: Calcium Carbonate 500 MG ChewTAB PO PRN (23:51)
--- NOTE | 2018-12-14 00:30 | HP ---
PRIMARY CARE PHYSICIAN: Dr. Gamino in [place]. CHIEF COMPLAINT: Altered mentation. HISTORY OF PRESENT ILLNESS: The patient is an 83-year-old male with recent intracranial bleed secondary to hypertension versus amyloid angiopathy, was brought into the emergency room with altered mentation. 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 He had some episodes of delirium during the hospital stay, which responded well to Klonopin. His stay at Rehab was uneventful except for some confusion during the end of his stay per family report. The patient was evaluated by Dr. Gamino three weeks ago and was started on mirtazapine 30 mg at bedtime. Four days ago, the patient was re-evaluated by Dr. Gamino and was started on Seroquel 50 mg at bedtime and 25 mg daily along with ciprofloxacin for possible UTI. There was no urinalysis done since the patient refused to give a sample. The confusion got worse over the last 24 hours for which he was brought into the emergency room for evaluation. He was agitated at home per family report. At the time of my evaluation, he is sitting on the bed with the family. He is still confused, however is calm. He denies any complaints at this time. PAST MEDICAL HISTORY: 1. Recent hospitalization for intracranial hemorrhage secondary to hypertension versus amyloid angiopathy. 2. Hypertension. 3. Hypothyroidism. 4. History of prostate cancer. 5. Hyperlipidemia. 6. Dementia. PAST SURGICAL HISTORY: Hernia repair. ALLERGIES: THE PATIENT IS ALLERGIC TO ALDACTONE AND TETRACYCLINE. CURRENT HOME MEDICATIONS: 1. Lipitor 20 mg daily. 2. Benazepril 10 mg daily. 3. Lansoprazole 30 mg daily. 4. Levothyroxine 50 mcg every day except for 100 mcg on Sundays. 5. Mirabegron 50 mg daily. 6. Remeron 30 mg at bedtime. 7. Seroquel 50 mg at night and 25 mg daily. SOCIAL HISTORY: The patient currently lives at home with his family. His spouse is a DPOA. He is full code. No current use of smoking, alcohol, or drug use. FAMILY HISTORY: Negative for heart disease. REVIEW OF SYSTEMS: Cannot be reliably obtained from the patient due to current cognitive status. PHYSICAL EXAMINATION: VITAL SIGNS: Temperature 98.9, respirations 20, pulse rate of 86, blood pressure 164/97, and O2 saturation 100% on room air. GENERAL: An 83-year-old male in no apparent distress, confused. HEENT: Head; atraumatic, normocephalic. Sclerae anicteric. Moist mucous membranes. No oral lesion. NECK: Supple. No JVD appreciated. No carotid bruit. LUNGS: Clear to auscultation bilaterally. No wheezing, rales, or rhonchi. HEART: S1, S2 present. Regular rate and rhythm. No rubs or gallops appreciated. No heaves or pulsation. ABDOMEN: Soft, nontender. Bowel sounds present. EXTREMITIES: No edema or calf tenderness. NEUROLOGIC: Grossly nonfocal. Moves all 4 extremities. Exam was limited due to underlying confusion. However, he is following commands to some extent. Power was 5/5 in all extremities. PSYCHIATRY: As discussed above. The patient is alert and awake, however, remains confused. SKIN: Warm and dry. LYMPH NODES: No palpable lymph nodes in the neck. PERIPHERAL/VASCULAR: Radial pulses palpable bilaterally. MUSCULOSKELETAL: No joint swelling or tenderness. LABORATORY FINDINGS: TSH 0.3091. CK was 67. Troponin was negative. WBC 10.0 with hemoglobin 13.6. Creatinine 1.06 with BUN 25. LFTs in normal range. Chest x-ray by my review was negative for infiltrate. Urinalysis was negative. CT scan of the brain was negative for acute findings. It showed resolving left temporal lobe parenchymal hemorrhage. EKG by my review showed sinus rhythm with nonspecific ST-T wave changes with right bundle branch block. IMPRESSION: 1. Toxic metabolic encephalopathy, multifactorial. Three weeks ago, the patient was started on Remeron 30 mg at bedtime. However, over the last four days, the patient has been started on ciprofloxacin along with Seroquel 50 mg at bedtime and 25 mg daily. 2. Dementia. 3. Hypothyroidism with low TSH. 4. Chronic kidney disease, stage 2. 5. Mild chronic anemia. 6. Hypertension. 7. Hyperlipidemia. 8. History of prostate cancer. 9. Recent hospitalization for intracranial bleed secondary to hypertension versus amyloid angiopathy. PLAN: The patient will be monitored in the stroke unit as 23-hour observation. Neurology will be consulted. We will discontinue ciprofloxacin as there is no evidence of UTI. We will resume Seroquel at 25 mg at bedtime, as well as Remeron 15 mg at bedtime. The patient has pulled IV access and is refusing a new one. I encouraged the family to maintain adequate oral intake. We will add Ensure. We will check vitamin B12 and folic acid. We will reduce levothyroxine dose to 50 mcg every day. He currently takes 50 mcg every day except for on Friday, where he takes 100 mcg. We will resume other home medications. Plan of care was discussed with the patient and the family in detail. They stated understanding. Job ID: [id number]
[2018-12-14] MEDS: Levothyroxine Sodium 50 MCG TAB PO SCH (04:59)
[2018-12-14 08:02] LABS: #Eosinphils 0.3 thou/uL (0.0-0.7); #Lymphocytes 1.3 thou/uL (1.20-3.40); #Monocytes 0.7 thou/uL (0.11-0.59); #Neutrophils 5.6 thou/uL (1.40-6.50); %Basophils 0.1 % (0.0-1.0); %Eosinophils 4.3 % (0.0-10.0); %Lymphocytes 16.7 % (21.0-51.0); %Monocytes 9.1 % (0.0-10.0); %Neutrophils 69.9 % (42.0-75.0); Hemoglobin 11.4 g/dL (14.0-18.0); Mean Corpuscular HGB CONC 31.3 g/dL (32.0-36.0); Mean Corpuscular Volume 92.7 fL (78.0-98.0); Mean Platelet Volume 9.9 fL (7.4-10.4); Platelet Count 187 thou/uL (130-400); RBC Distribution Width 13.3 % (11.5-14.5); Red Blood Cell (RBC) Count 3.92 mill/uL (4.70-6.10)
[2018-12-14 08:12] LABS: Anion Gap 11 mmol/L (10-20); BUN (Urea Nitrogen) 25 mg/dL (8.4-25.7); Calc. Creatinine Clearance 60 mL/min (70-130); Calcium 9.2 mg/dL (7.8-10.44); Carbon Dioxide 28 mmol/L (23-31); Chloride 103 mmol/L (98-107); Estimated GFR-MDRD 88; Glucose 105 mg/dL (83-110); Potassium 3.8 mmol/L (3.5-5.1); Sodium 138 mmol/L (136-145)
[2018-12-14] MEDS ORDERED: clonazePAM 0.5 MG TAB PO SCH (09:00)
[2018-12-14] MEDS: Calcium Carbonate 500 MG ChewTAB PO PRN ×2 (09:25→13:46)
[2018-12-14] MEDS: Atorvastatin Calcium 20 MG TAB PO SCH (09:27)
[2018-12-14] MEDS: Senokot S 8.6-50 MG TAB PO SCH ×2 (09:30→20:22)
--- NOTE | 2018-12-14 10:34 | PDOC.PN ---
- Subjective Encounter Start Date: 12/14/18 Encounter Start Time: 10:01 Subjective: Patient continues with confused speech. Episodes of irritability/ agression. -: Unable to properly answer questions. This morning urinated on himself. -: Per he can go to the bathroom alone and wash his hands. Per and daughter he was doing well and had recovered from recent stroke. Completed 3 weeks of rehab, talking in full sentences and conversating. This changed after placed on Seroquel, Remeron and Cipro. Since decreased doses they noted slight improvement but now unable to answer questions. Still confused. Remains afebrile. - Objective Resuscitation Status - Order Detail: 12/13/18 23:09 Resuscitation Status Routine Resuscitation Status: FULL: Full Resuscitation Vital Signs & Weight: Vital Signs (12 hours) Temp Pulse Resp BP BP Pulse Ox 12/14/18 09:28 134/91 H 12/14/18 07:35 97.0 F L 60 16 134/91 H 95 12/14/18 04:00 96.4 F L 67 16 102/75 98 12/14/18 00:00 97.8 F 54 L 16 140/85 96 12/13/18 23:09 96 Weight Weight 140 lb I&O: 12/13/18 12/14/18 12/15/18 06:59 06:59 06:59 Intake Total 750 Output Total 1 Balance 749 Result Diagrams: 12/14/18 05:35 12/14/18 05:35 Phys Exam - Physical Examination Constitutional: NAD HEENT: PERRLA, oral pharynx no lesions Neck: supple, full ROM Respiratory: clear to auscultation bilateral Cardiovascular: RRR Gastrointestinal: soft, non-tender, no distention, positive bowel sounds Musculoskeletal: no edema, pulses present Neurological: normal sensation, moves all 4 limbs Deviation from normal: Pleasant but confused at present Skin: no rash Dx/Plan (1) Confusion with non-focal neuro exam Code(s): R41.0 - DISORIENTATION, UNSPECIFIED Status: Acute (2) ICH (intracerebral hemorrhage) Code(s): I61.9 - NONTRAUMATIC INTRACEREBRAL HEMORRHAGE, UNSPECIFIED Status: Acute (3) Hypertension Code(s): I10 - ESSENTIAL (PRIMARY) HYPERTENSION Status: Chronic (4) Hypothyroidism Code(s): E03.9 - HYPOTHYROIDISM, UNSPECIFIED Status: Chronic - Plan cont current plan of care, plan discussed w/ family, PT/OT CT head showed resolving left temporal hemorrhage. -: MRI Brain requested. -: Awaiting Neuro. -: Discussed with Dr. Browning who agrees with plan as above. * .
[2018-12-14] MEDS ORDERED: ALPRAZolam 0.25 MG TAB PO SCH (15:00)
--- NOTE | 2018-12-14 16:05 | MRI ---
MRI BRAIN NONCONTRAST: COMPARISON: Reference is made to head CT of previous day. Evaluation is limited as the patient was not able to tolerate the exam, which was, therefore, termina new for safety. FINDINGS: There is abnormal restricted diffusion of the anterior to mid left temporal lobe. This corresponds t o an area of hypoattenuation on preceding CT exam at the site of a prior parenchymal hemorrhage. Thi s area demonstrates intrinsic T1 signal. The ventricular system is prominent, stable. IMPRESSION: Restricted diffusion and increased T1 signal at site of previously documented evolving left temporal lobe hematoma. Evaluation otherwise limited. POS: [facility]
[2018-12-14] MEDS ORDERED: Mirtazapine 15 MG TAB PO SCH (21:00)
[2018-12-15] MEDS: Levothyroxine Sodium 50 MCG TAB PO SCH (04:33)
[2018-12-15] MEDS: Atorvastatin Calcium 20 MG TAB PO SCH (09:12)
[2018-12-15] MEDS: Senokot S 8.6-50 MG TAB PO SCH (09:12)
[2018-12-15] MEDS ORDERED: clonazePAM 0.5 MG TAB PO PRN (14:39)
[2018-12-15] MEDS ORDERED: clonazePAM 0.5 MG TAB PO SCH (15:00)
--- NOTE | 2018-12-15 16:00 | PDOC.PN ---
- Subjective Encounter Start Date: 12/15/18 Encounter Start Time: 13:55 Subjective: Patient resting comfortably and pleasant. Denies any complaints. -: Difficult to fully assess given level of dementia/AMS. At present he is -: calm and in no distress. Has been having moments of aggression and attempting to abscond. Yesterday while undergoing MRI became very aggressive. Per his he has been pacing and walking up and down the halls all night. Slept for only 3 hours. This morning he was very pleasant, but again had an episode of aggression and security was called to bedside which seems to calm the patient down. He did try to leave through the side doors of the halls. He has not had any falls and has not sustained any injuries. - Objective Resuscitation Status - Order Detail: 12/13/18 23:09 Resuscitation Status Routine Resuscitation Status: FULL: Full Resuscitation Vital Signs & Weight: Vital Signs (12 hours) Pulse Resp BP BP Pulse Ox 12/15/18 15:30 70 16 107/70 97 12/15/18 13:54 134/91 H 12/15/18 09:12 134/91 H Weight Weight 140 lb I&O: 12/14/18 12/15/18 12/16/18 06:59 06:59 06:59 Intake Total 750 1340 Output Total 1 Balance 749 1340 Result Diagrams: 12/14/18 05:35 12/14/18 05:35 Phys Exam - Physical Examination Constitutional: NAD HEENT: PERRLA, oral pharynx no lesions Neck: no nodes, supple, full ROM Respiratory: no wheezing, no rales, no rhonchi, clear to auscultation bilateral Cardiovascular: RRR Gastrointestinal: soft, non-tender, no distention, positive bowel sounds Musculoskeletal: no edema Neurological: non-focal, normal sensation, moves all 4 limbs Psychiatric: normal affect, A&O x 3 Skin: no rash Dx/Plan (1) Toxic metabolic encephalopathy Code(s): G92 - TOXIC ENCEPHALOPATHY Status: Acute Plan: Believed to be medication induced. Seroquel decreased to 25 mg QHS. Remeron and Cipro discontinued. UA negative. No signs of infection. Patient with further aggression today. Klonopin 0.5 mg PO BID PRN agitation/anxiety prescribed. Awaiting Neuro review. (2) ICH (intracerebral hemorrhage) Code(s): I61.9 - NONTRAUMATIC INTRACEREBRAL HEMORRHAGE, UNSPECIFIED Status: Acute Plan: CT imaging confirmed left temporal hemorrhage is resolving. (3) Hypertension Code(s): I10 - ESSENTIAL (PRIMARY) HYPERTENSION Status: Chronic (4) Hypothyroidism Code(s): E03.9 - HYPOTHYROIDISM, UNSPECIFIED Status: Chronic Plan: Continue Levothyroxine. - Plan cont current plan of care Patients case discussed with Dr. Browning who has advised -: converting to inpatient status given acute encephalopathy with -: aggression/uncontrolled behavior as well require adjustement in -: medications which will take time to take effect. Patient unsafe -: to be at home alone with his . * .
--- NOTE | 2018-12-15 17:20 | CON ---
DATE OF CONSULTATION: 12/15/2018 CONSULTING PHYSICIAN: Hospitalist Service. 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 PLAN: 1. Behavior control hopefully through combination of medications. 2. Placement to avoid his being injured by his violent behavior. HISTORY OF PRESENT ILLNESS: Mr. Wetzel is an 83-year-old man, who reportedly has been showing some signs of dementia for more than a year. His daughter noted that he was intermittently more confused. He was on Lupron shots in the past and he would go through waxing and waning confusion during that treatment. He subsequently became more violent and paranoid. He was brought in for evaluation. A CT scan showed evidence of left temporal hemorrhage. His lab work was otherwise negative including a B12 level. His urine was clean. He has been going through violent outbursts and running down the anne and attempting to escape the hospital. They were able set one down with some Klonopin earlier today. He did not sleep very well last night. Prior to developing this worsening, he was also on mirtazapine and Cipro, which may have been contributing factors. Both of these have been discontinued. His has a coagulopathy and there was some concern due to his violence that he could injure her. PAST MEDICAL HISTORY: Hyperlipidemia, hypothyroidism. ALLERGIES: SPIRONOLACTONE, TETRACYCLINES. SOCIAL HISTORY: No tobacco or alcohol use. He is . MEDICATIONS: Medication list was reviewed. REVIEW OF SYSTEMS: Not obtainable due to his current state and mind. PHYSICAL EXAMINATION: GENERAL: He is a thin elderly man, who is sleeping in a chair at this point. VITAL SIGNS: Blood pressure 107/70, pulse 70, respirations 16, and temperature 97. HEENT: Normocephalic and atraumatic. NECK: No lymphadenopathy. EXTREMITIES: No cyanosis, clubbing, or edema. NEUROLOGIC: Limited due to his sedated state. His tone appeared to be symmetric. He obviously is able to walk independently and placed on his prior activities earlier in the day. He is moving both upper extremities reasonably well. No abnormal movements were witnessed. SUMMARY: This gentleman has shown some fairly rapid decline in his cognitive state along with developing some paranoid ideations and hallucinations. Hopefully, we can settle these down a bit with medication. Job ID: [id number]
[2018-12-15] MEDS: Citalopram 20 MG TAB PO SCH (21:01)
[2018-12-16] MEDS: Senokot S 8.6-50 MG TAB PO SCH ×3 (06:06→20:26)
[2018-12-16] MEDS: Atorvastatin Calcium 20 MG TAB PO SCH (10:44)
[2018-12-16] MEDS: Levothyroxine Sodium 50 MCG TAB PO SCH (10:44)
[2018-12-16] MEDS: Acetaminophen 325 MG TAB PO PRN ×2 (15:41→23:00)
--- NOTE | 2018-12-16 17:04 | PDOC.PN ---
- Subjective Encounter Start Date: 12/16/18 Encounter Start Time: 09:00 Patient seen and examined for encephalopathy. Slept well last night. Feels better. No new complaints. No overnight events - Objective Resuscitation Status - Order Detail: 12/13/18 23:09 Resuscitation Status Routine Resuscitation Status: FULL: Full Resuscitation MAR Reviewed: Yes Vital Signs & Weight: Vital Signs (12 hours) Temp Pulse Resp BP BP Pulse Ox 12/16/18 15:59 97.7 F 61 18 94/68 97 12/16/18 11:23 98.2 F 67 16 90/61 94 L 12/16/18 10:44 134/91 H Weight Weight 140 lb I&O: 12/15/18 12/16/18 12/17/18 06:59 06:59 06:59 Intake Total 1340 720 Balance 1340 720 Result Diagrams: 12/14/18 05:35 12/14/18 05:35 Phys Exam - Physical Examination Constitutional: NAD Neurological: non-focal, moves all 4 limbs Psychiatric: A&O x 3 Skin: no rash Dx/Plan - Plan DVT proph w/SCDs IMPRESSION: 1. Toxic metabolic encephalopathy, multifactorial. 2. Dementia. 3. Hypothyroidism with low TSH. 4. Chronic kidney disease, stage 2. 5. Mild chronic anemia. 6. Hypertension. 7. Hyperlipidemia. 8. History of prostate cancer. 9. Recent hospitalization for intracranial bleed secondary to hypertension versus amyloid angiopathy. PLAN: Cont current dose of Seroquel and Celexa per Neurology SNF eval Cont other meds as below Review of Systems - Review of Systems Cardiovascular: negative: chest pain, palpitations, orthopnea, paroxysmal nocturnal dyspnea, edema, light headedness, other Gastrointestinal: negative: Nausea, Vomiting, Abdominal Pain, Diarrhea, Constipation, Melena, Hematochezia, Other - Medications/Allergies Allergies/Adverse Reactions: Allergies Allergy/AdvReac Type Severity Reaction Status Date / Time spironolactone Allergy Severe Verified 10/16/18 03:33 Tetracyclines Allergy Verified 10/16/18 03:33 Medications: Current Medications Acetaminophen (Tylenol) 650 mg PO Q4H PRN PRN Reason: Headache/Fever/Mild Pain (1-3) Last Admin: 12/16/18 15:41 Dose: 650 mg Atorvastatin Calcium (Lipitor) 20 mg PO DAILY [facility] Last Admin: 12/16/18 10:44 Dose: 20 mg Benazepril HCl (Lotensin) 10 mg PO DAILY [facility] Last Admin: 12/16/18 10:44 Dose: 10 mg Calcium Carbonate (Tums) 1,000 mg PO Q4H PRN PRN Reason: Heartburn or Indigestion Last Admin: 12/14/18 13:46 Dose: 1,000 mg Citalopram Hydrobromide (Celexa) 20 mg PO HS [facility] Last Admin: 12/15/18 21:01 Dose: 20 mg Clonazepam (Klonopin) 0.5 mg PO BIDPRN PRN PRN Reason: Anxiety/Agitation Clonidine (Catapres) 0.1 mg PO Q4H PRN PRN Reason: Systolic BP > 180 Last Admin: 12/15/18 13:54 Dose: 0.1 mg Labetalol HCl (Normodyne) 10 mg SLOW IVP Q4H PRN PRN Reason: Systolic BP > 180 Levothyroxine Sodium (Synthroid) 50 mcg PO 0600 [facility] Last Admin: 12/16/18 10:44 Dose: 50 mcg Mirabegron (Myrbetriq Er) 50 mg PO DAILY [facility] Last Admin: 12/16/18 10:44 Dose: 50 mg Pantoprazole Sodium (Protonix) 40 mg PO DAILY [facility] Last Admin: 12/16/18 10:44 Dose: 40 mg Quetiapine Fumarate (Seroquel) 25 mg PO DAILYPRN PRN PRN Reason: Agitation Quetiapine Fumarate (Seroquel) 100 mg PO HS [facility] Last Admin: 12/15/18 21:01 Dose: 100 mg Senna/Docusate Sodium (Senokot S) 1 tab PO BID [facility] Last Admin: 12/16/18 10:44 Dose: 1 tab
[2018-12-16] MEDS: Citalopram 20 MG TAB PO SCH (20:26)
[2018-12-17] MEDS: Acetaminophen 325 MG TAB PO PRN (06:20)
[2018-12-17] MEDS: Levothyroxine Sodium 50 MCG TAB PO SCH (06:20)
[2018-12-17] MEDS: Atorvastatin Calcium 20 MG TAB PO SCH (09:19)
[2018-12-17] MEDS: Senokot S 8.6-50 MG TAB PO SCH (09:20)
[2018-12-17 11:26] VITALS: BP 103/68; TEMP 97.4
--- NOTE | 2018-12-17 13:33 | CT ---
CT OF THE HEAD: DATE: 12/17/2018. COMPARISON: 12/13/2018. HISTORY: Worsening headaches, history of left-sided stroke. TECHNIQUE: Axial CT imaging at 5 mm intervals through the vertex through the skull base without contrast. FINDINGS: There is a hypodensity within the posterior and inferior aspect of the left temporal lobe, as seen on numerous prior examinations, consistent with edema associated with resolving hematoma. On today's e xamination, the hypodensity on the basis of edema in this region is less conspicuous than on the rece nt prior CT performed 12/13/2018. No midline shift or mass effect is noted. No acute hemorrhage is s een. Imaged paranasal sinuses/mastoid air cells are well aerated. No displaced calvarial fracture. IMPRESSION: Hypodensity in the left temporal lobe consistent with edema associated with resolving hemorrhage and/ or infarction. No acute hemorrhage is evident. No significant midline shift or evidence of mass eff ect. If there is clinical concern for an acute infarction, brain MRI required. POS: [facility]
--- NOTE | 2018-12-17 13:46 | PDOC.PN ---
- Subjective Encounter Start Date: 12/17/18 Encounter Start Time: 10:00 Patient seen and examined for Encephalopathy. Mentation improving. Left sided headache getting worse over the last 2 days. No new complaints. No overnight events - Objective Resuscitation Status - Order Detail: 12/13/18 23:09 Resuscitation Status Routine Resuscitation Status: FULL: Full Resuscitation MAR Reviewed: Yes Vital Signs & Weight: Vital Signs (12 hours) Temp Pulse Resp BP BP Pulse Ox 12/17/18 11:25 97.4 F L 60 16 103/68 98 12/17/18 09:19 108/70 12/17/18 08:00 97 12/17/18 07:37 97.9 F 50 L 16 108/70 97 Weight Weight 140 lb I&O: 12/16/18 12/17/18 12/18/18 06:59 06:59 06:59 Intake Total 720 240 Balance 720 240 Result Diagrams: 12/14/18 05:35 12/14/18 05:35 EKG Reviewed by me: Yes (Tele SR) Phys Exam - Physical Examination Constitutional: NAD Respiratory: no wheezing, no rhonchi Cardiovascular: RRR, no rub Gastrointestinal: soft, non-tender, positive bowel sounds Musculoskeletal: no edema Neurological: non-focal, moves all 4 limbs Dx/Plan - Plan plan discussed w/ family, DVT proph w/SCDs IMPRESSION: 1. Toxic metabolic encephalopathy, multifactorial - improving 2. Dementia. 3. Hypothyroidism with low TSH. Repeat TSH as outpt in 3-4 weeks 4. Chronic kidney disease, stage 2. 5. Mild chronic anemia. 6. Hypertension. 7. Hyperlipidemia. 8. History of prostate cancer. 9. Recent hospitalization for intracranial bleed secondary to hypertension versus amyloid angiopathy. Now with headache of 2 days duration PLAN: CT brain w/o contrast per family req Cont current dose of Seroquel and Celexa per Neurology Resume HHC at dc Cont other meds as below Review of Systems - Medications/Allergies Allergies/Adverse Reactions: Allergies Allergy/AdvReac Type Severity Reaction Status Date / Time spironolactone Allergy Severe Verified 10/16/18 03:33 Tetracyclines Allergy Verified 10/16/18 03:33 Medications: Current Medications Acetaminophen (Tylenol) 650 mg PO Q4H PRN PRN Reason: Headache/Fever/Mild Pain (1-3) Last Admin: 12/17/18 06:20 Dose: 650 mg Atorvastatin Calcium (Lipitor) 20 mg PO DAILY [facility] Last Admin: 12/17/18 09:19 Dose: 20 mg Benazepril HCl (Lotensin) 10 mg PO DAILY [facility] Last Admin: 12/17/18 09:19 Dose: 10 mg Calcium Carbonate (Tums) 1,000 mg PO Q4H PRN PRN Reason: Heartburn or Indigestion Last Admin: 12/14/18 13:46 Dose: 1,000 mg Citalopram Hydrobromide (Celexa) 20 mg PO HS [facility] Last Admin: 12/16/18 20:26 Dose: 20 mg Clonazepam (Klonopin) 0.5 mg PO BIDPRN PRN PRN Reason: Anxiety/Agitation Clonidine (Catapres) 0.1 mg PO Q4H PRN PRN Reason: Systolic BP > 180 Last Admin: 12/15/18 13:54 Dose: 0.1 mg Labetalol HCl (Normodyne) 10 mg SLOW IVP Q4H PRN PRN Reason: Systolic BP > 180 Levothyroxine Sodium (Synthroid) 50 mcg PO 0600 [facility] Last Admin: 12/17/18 06:20 Dose: 50 mcg Mirabegron (Myrbetriq Er) 50 mg PO DAILY [facility] Last Admin: 12/17/18 09:19 Dose: 50 mg Pantoprazole Sodium (Protonix) 40 mg PO DAILY [facility] Last Admin: 12/17/18 09:20 Dose: 40 mg Quetiapine Fumarate (Seroquel) 25 mg PO DAILYPRN PRN PRN Reason: Agitation Quetiapine Fumarate (Seroquel) 100 mg PO HS [facility] Last Admin: 12/16/18 20:26 Dose: 100 mg Senna/Docusate Sodium (Senokot S) 1 tab PO BID [facility] Last Admin: 12/17/18 09:20 Dose: 1 tab
--- NOTE | 2018-12-17 15:23 | DIS ---
DATE OF ADMISSION: 12/15/2018 DATE OF DISCHARGE: 12/17/2018 DISCHARGE DISPOSITION: Home. FOLLOWUP: 1. Follow up with primary care physician, Dr. Jorge L Gamino. 2. Follow up with Dr. Jaren Hernandez in 1 to 2 weeks. FALL PRECAUTION: Fall precaution was emphasized. ALLERGIES: THE PATIENT IS ALLERGIC TO ALDACTONE AND TETRACYCLINES. DISCHARGE MEDICATIONS: 1. Seroquel 100 mg at bedtime. 2. Celexa 20 mg at bedtime. 3. Lipitor 20 mg daily. 4. Benazepril 10 mg daily. 5. Lansoprazole 30 mg daily. 6. Mirabegron 50 mg daily. 7. Levothyroxine dose was changed to 50 mcg daily. BRIEF HOSPITAL COURSE: The patient is an 83-year-old male with dementia with recent intracranial bleed, presented to the emergency room with altered mentation. Please refer to the history and physical for further details. The patient was admitted to the hospital with a diagnosis of altered mentation of unclear etiology. CT scan of the brain showed resolving left temporal lobe anterior parenchymal hemorrhage. He was monitored in the observation unit. He underwent MRI of the brain as well that did not show any acute findings. The patient was evaluated by Neurology, Dr. Hernandez. Dr. Hernandez started him on Seroquel along with Celexa. Remeron has been discontinued per Dr. Hernandez. He was found to have low TSH of 0.3091. For this reason, levothyroxine dose has been reduced. Per family's request, he will be discharged home. They declined home health care. He appears stable for discharge. There was no infectious etiology identified for altered mentation. FINAL DIAGNOSES: 1. Toxic metabolic encephalopathy, probably due to underlying dementia. 2. Dementia. 3. Hypothyroidism with low TSH. 4. Chronic kidney disease, stage 2. 5. Mild chronic anemia. 6. Hypertension. 7. Hyperlipidemia. 8. History of prostate cancer. 9. Recent hospitalization for intracranial bleed secondary to hypertension versus amyloid angiopathy. PLAN: Plan of care was discussed with the patient and the family in detail. They stated understanding. Job ID: [id number]
== END 2018-12-17 15:45 | disposition home health service (06) | DRG 93 ==
LOC: ERS 15:42 → 2SE 17:30 → OBSVTOIN 12-15 10:39
PROVIDERS: ADMIT Internal Medicine; ATTEND Internal Medicine
DX: G92 Toxic encephalopathy (principal); F03.90 Unspecified dementia, unspecified severity, without behavioral disturbance, psychotic disturbance, mood disturbance, and anxiety; E03.9 Hypothyroidism, unspecified; N18.2 Chronic kidney disease, stage 2 (mild); D64.9 Anemia, unspecified; I12.9 Hypertensive chronic kidney disease with stage 1 through stage 4 chronic kidney disease, or unspecified chronic kidney disease; E78.5 Hyperlipidemia, unspecified; Z88.1 Allergy status to other antibiotic agents; Z88.8 Allergy status to other drugs, medicaments and biological substances; Z85.46 Personal history of malignant neoplasm of prostate
CPT/HCPCS: 36415; 70450; 70551; 71045; 80048; 80053; 80306; 80307; 81003; 82550; 82607; 82746; 84443; 84484; 85025; 85610; 85730; 87086; 93005

== ENCOUNTER 2018-12-18 20:17 | Observation (INO) | payer MEDICARE ==
[2018-12-18 21:23] LABS: #Eosinphils 0.2 thou/uL (0.0-0.7); #Lymphocytes 1.2 thou/uL (1.20-3.40); #Monocytes 0.5 thou/uL (0.11-0.59); #Neutrophils 4.7 thou/uL (1.40-6.50); %Basophils 0.1 % (0.0-1.0); %Eosinophils 3.1 % (0.0-10.0); %Lymphocytes 17.6 % (21.0-51.0); %Monocytes 8.1 % (0.0-10.0); %Neutrophils 71.1 % (42.0-75.0); Mean Corpuscular HGB CONC 33.1 g/dL (32.0-36.0); Mean Corpuscular Volume 90.7 fL (78.0-98.0); Mean Platelet Volume 9.1 fL (7.4-10.4); Platelet Count 169 thou/uL (130-400); RBC Distribution Width 13.1 % (11.5-14.5); White Blood Cell (WBC) Count 6.6 thou/uL (4.8-10.8)
[2018-12-18 21:33] LABS: Bilirubin Negative (Negative); Blood, Urine Negative (Negative); Clarity CLEAR (Clear); Glucose, Urine (Dipstick) Negative (Negative); Leukocyte Negative (Negative); Nitrite Negative (Negative); Protein, Urine (Dipstick) Negative (Neg-Trace); Specific Gravity, Urine 1.007 (1.002-1.036); Urobilinogen 0.2 mg/dL (0.2-1.0)
[2018-12-18 21:49] LABS: ALT (SGPT) 13 U/L (8-55); AST (SGOT) 17 U/L (5-34); Albumin 4.2 g/dL (3.4-4.8); Alkaline Phosphatase 77 U/L (40-150); Anion Gap 11 mmol/L (10-20); BUN (Urea Nitrogen) 23 mg/dL (8.4-25.7); Bilirubin, Total 0.4 mg/dL (0.2-1.2); Calc. Creatinine Clearance 0 mL/min (70-130); Calcium 9.7 mg/dL (7.8-10.44); Carbon Dioxide 31 mmol/L (23-31); Chloride 103 mmol/L (98-107); Estimated GFR-MDRD 76; Globulin 2.8 g/dL (2.4-3.5); Glucose 88 mg/dL (83-110); Sodium 141 mmol/L (136-145)
--- NOTE | 2018-12-18 22:32 | CT ---
HEAD CT WITHOUT CONTRAST: 12/18/18 COMPARISON: 12/17/18, 11/14/18, 12/13/18. CORRELATION: MRI brain 12/14/18. FINDINGS: Adequate aeration of the sinuses and mastoid air cells. Calvarium is intact. Redemonstration of a met allic foreign body in the left supraorbital region. Stable atrophy. Stable configuration of the ventricular system. There is Persistent hypoattenuation i n the left temporal lobe, unchanged from the previous examination. No new areas of hypoattenuation or hemorrhage are appreciated. IMPRESSION: Continued resolution of the previously noted hematoma/infarct in the left temporal lobe. No acute int racranial hemorrhage. POS: [facility]
[2018-12-18] MEDS ORDERED: Acetaminophen 325 MG TAB PO PRN (23:37)
[2018-12-18] MEDS ORDERED: Ondansetron PF 4 MG/2 ML Vial IVP PRN (23:37)
[2018-12-18] MEDS ORDERED: Zolpidem Tartrate 5 MG TAB PO PRN (23:37)
[2018-12-18] MEDS ORDERED: Haloperidol Lactate 5 MG/ML VIAL IM PRN (23:41)
[2018-12-18] MEDS ORDERED: Lorazepam 2 MG/ML VIAL SLOW IVP PRN (23:41)
--- NOTE | 2018-12-19 00:13 | HP ---
ADMITTING COMPLAINT: Combativeness. HISTORY OF PRESENT ILLNESS: This is an 83-year-old male, with a recent hemorrhagic stroke, history of dementia, hypothyroidism, and hypertension, was discharged yesterday from the hospital to home. The patient's family apparently took him home and the patient was very combative, so family brought him back today requesting to have SNF arrangements done if we can have those arrange. Family states that otherwise the patient has no other issues. No changes from prior admission. Denies any alleviating or aggravating factors. The patient was seen and examined in the ER. Family at bedside. All questions answered. ALLERGIES: TO ALDACTONE AND TETRACYCLINES, UNCLEAR TO WHAT HAPPENS WHEN THE PATIENT TAKES THESE MEDICATIONS. REVIEW OF SYSTEMS: Not possible due to mental status changes. PAST MEDICAL HISTORY: Positive for hypothyroidism, dementia, CVA, hypertension, and vasculopathy. SOCIAL HISTORY: Nonsmoker and nondrinker. FAMILY HISTORY: Positive for hypertension. PHYSICAL EXAMINATION: VITAL SIGNS: Blood pressure 158/87, pulse of 55, respirations of 18, temperature of 98, and O2 saturation of 99% on room air. GENERAL: The patient lying in bed comfortably, making hand gestures at the TV. HEENT: Pupils are equal, round, and reactive to light and accommodation. Extraocular muscles intact. Oral cavity moist and pink. NECK: Supple, mobile, nontender. Thyroid appreciated. RESPIRATORY: Clear to auscultation bilaterally. No rales, rhonchi, or wheezing noted. CARDIOVASCULAR: S1, S2. No murmurs, rubs, or gallops appreciated. ABDOMEN: Positive bowel sounds. Soft, nontender, nondistended. EXTREMITIES: 2+ peripheral pulses. No cyanosis, clubbing, or edema noted. NEUROLOGICAL: Alert and oriented to person only, not place or time. Follows some commands. LABORATORY DATA: CBC within normal limits. Basic metabolic panel within normal limits. UA within normal limits. DIAGNOSTIC DATA: The patient had a brain CT done as well, which showed prior hematoma infarction of the left temporal lobe. No acute intracranial hemorrhage or findings. ASSESSMENT: 1. Dementia. 2. History of cerebrovascular accident. 3. Hypertension. 4. Hypothyroidism. 5. Vasculopathy. PLAN: At this point in time, we will admit to observation. Consults to PT. Consults to Case Management as well to arrange [facility] facility. We will provide p.r.n. Ativan and Haldol in case the patient becomes agitated or combative again. Case discussed with the patient's family at length. After a lengthy discussion, the family decided to make the patient a DNR. They would like to pursue SNF care. We will consult Case Management. Discharge plans to SNF once arrangements made. Case and plan discussed with the patient's family at length, his daughter, son as well as . They understand and agreed with this plan. Job ID: [id number]
[2018-12-19] MEDS ORDERED: Lorazepam 2 MG/ML VIAL ONE (01:03)
[2018-12-19 02:14] VITALS: BMI 21.0
[2018-12-19] MEDS: Levothyroxine Sodium 50 MCG TAB PO SCH (06:21)
[2018-12-19] MEDS ORDERED: Prevnar 13-Val Conj/PF 0.5 ML SYRINGE IM ONE (09:00)
[2018-12-19] MEDS: Enoxaparin Sodium 40 MG/0.4 ML SYRINGE SC SCH (10:08)
[2018-12-19] MEDS: Atorvastatin Calcium 20 MG TAB PO SCH (10:08)
--- NOTE | 2018-12-19 14:50 | PDOC.PN ---
- Subjective Encounter Start Date: 12/19/18 Encounter Start Time: 08:20 Pt seen for followup re: altered mental status. Pt sleepy but arousable, not answering questions, could not complete ROS. - Objective Resuscitation Status - Order Detail: 12/18/18 23:32 Resuscitation Status Routine Resuscitation Status: DNAR: NO Resuscitation Discussed with: who is decision maker Additional comments: family also at bedside and agreed MAR Reviewed: Yes Vital Signs & Weight: Vital Signs (12 hours) Temp Pulse Resp BP BP Pulse Ox 12/19/18 13:48 98.0 F 16 131/79 97 12/19/18 10:08 138/78 12/19/18 08:05 96 12/19/18 08:00 98.2 F 55 L 18 138/78 96 12/19/18 05:05 97.3 F L 51 L 16 129/79 97 Weight Admit Weight 146 lb 9.6 oz Weight 146 lb 9.6 oz I&O: 12/18/18 12/19/18 12/20/18 06:59 06:59 06:59 Intake Total 0 Balance 0 Result Diagrams: 12/18/18 21:14 12/18/18 21:14 Additional Labs: Labs reviewed by me Phys Exam - Physical Examination Constitutional: NAD HEENT: moist MMs Neck: supple Respiratory: clear to auscultation bilateral Cardiovascular: RRR Gastrointestinal: soft Neurological: moves all 4 limbs Psychiatric: normal affect Dx/Plan (1) Altered mental status Code(s): R41.82 - ALTERED MENTAL STATUS, UNSPECIFIED Status: Acute Comment: workup negative so far, pt awaiting SNU assessment (2) HLD (hyperlipidemia) Code(s): E78.5 - HYPERLIPIDEMIA, UNSPECIFIED Status: Chronic Comment: continue statin (3) Hypertension Code(s): I10 - ESSENTIAL (PRIMARY) HYPERTENSION Status: Chronic Comment: controlled (4) Hypothyroidism Code(s): E03.9 - HYPOTHYROIDISM, UNSPECIFIED Status: Chronic Comment: continue synthroid - Plan * . Review of Systems - Medications/Allergies Allergies/Adverse Reactions: Allergies Allergy/AdvReac Type Severity Reaction Status Date / Time spironolactone Allergy Severe Verified 10/16/18 03:33 Tetracyclines Allergy Verified 10/16/18 03:33 Medications: Current Medications Acetaminophen (Tylenol) 650 mg PO Q4H PRN PRN Reason: Headache/Fever/Mild Pain (1-3) Atorvastatin Calcium (Lipitor) 20 mg PO DAILY [facility] Last Admin: 12/19/18 10:08 Dose: 20 mg Benazepril HCl (Lotensin) 10 mg PO DAILY [facility] Last Admin: 12/19/18 10:08 Dose: 10 mg Citalopram Hydrobromide (Celexa) 20 mg PO HS [facility] Enoxaparin Sodium (Lovenox) 40 mg SC 0900 [facility] Last Admin: 12/19/18 10:08 Dose: 40 mg Haloperidol Lactate (Haldol) 5 mg IM Q4H PRN PRN Reason: Agitation Levothyroxine Sodium (Synthroid) 50 mcg PO 0600 [facility] Last Admin: 12/19/18 06:21 Dose: Not Given Lorazepam (Ativan) 2 mg SLOW IVP Q6H PRN PRN Reason: Anxiety/Agitation Mirabegron (Myrbetriq Er) 50 mg PO DAILY [facility] Last Admin: 12/19/18 10:08 Dose: 50 mg Ondansetron HCl (Zofran) 4 mg IVP Q6H PRN PRN Reason: Nausea/Vomiting Quetiapine Fumarate (Seroquel) 100 mg PO HS [facility] Sodium Chloride (Flush - Normal Saline) 10 ml IVF Q12HR PRN PRN Reason: Saline Flush Zolpidem Tartrate (Ambien) 5 mg PO HSPRN PRN PRN Reason: Insomnia
[2018-12-19] MEDS: Citalopram 20 MG TAB PO SCH (20:12)
[2018-12-20] MEDS: Levothyroxine Sodium 50 MCG TAB PO SCH (06:23)
[2018-12-20] MEDS: Atorvastatin Calcium 20 MG TAB PO SCH (08:52)
[2018-12-20] MEDS: Enoxaparin Sodium 40 MG/0.4 ML SYRINGE SC SCH (08:52)
--- NOTE | 2018-12-20 17:05 | PDOC.PN ---
- Subjective Encounter Start Date: 12/20/18 Encounter Start Time: 10:00 Pt seen for followup re: altered mental status. Not answering questions, unable to complete ROS. - Objective Resuscitation Status - Order Detail: 12/18/18 23:32 Resuscitation Status Routine Resuscitation Status: DNAR: NO Resuscitation Discussed with: who is decision maker Additional comments: family also at bedside and agreed MAR Reviewed: Yes Vital Signs & Weight: Vital Signs (12 hours) Temp Pulse Resp BP BP Pulse Ox 12/20/18 08:52 150/91 H 98 12/20/18 07:48 97.6 F 51 L 18 150/91 H 98 Weight Admit Weight 146 lb 9.6 oz Weight 146 lb 9.6 oz I&O: 12/19/18 12/20/18 12/21/18 06:59 06:59 06:59 Intake Total 0 1320 Balance 0 1320 Result Diagrams: 12/18/18 21:14 12/18/18 21:14 Additional Labs: Labs reviewed by me Phys Exam - Physical Examination Constitutional: NAD HEENT: moist MMs Neck: supple Respiratory: clear to auscultation bilateral Cardiovascular: RRR Gastrointestinal: soft Neurological: moves all 4 limbs Psychiatric: normal affect Dx/Plan (1) Altered mental status Code(s): R41.82 - ALTERED MENTAL STATUS, UNSPECIFIED Status: Acute Comment: pt awaiting SNU assessment (2) HLD (hyperlipidemia) Code(s): E78.5 - HYPERLIPIDEMIA, UNSPECIFIED Status: Chronic Comment: on statin (3) Hypertension Code(s): I10 - ESSENTIAL (PRIMARY) HYPERTENSION Status: Chronic Comment: controlled (4) Hypothyroidism Code(s): E03.9 - HYPOTHYROIDISM, UNSPECIFIED Status: Chronic Comment: on synthroid - Plan * . Review of Systems - Medications/Allergies Allergies/Adverse Reactions: Allergies Allergy/AdvReac Type Severity Reaction Status Date / Time spironolactone Allergy Severe Verified 10/16/18 03:33 Tetracyclines Allergy Verified 10/16/18 03:33 Medications: Current Medications Acetaminophen (Tylenol) 650 mg PO Q4H PRN PRN Reason: Headache/Fever/Mild Pain (1-3) Atorvastatin Calcium (Lipitor) 20 mg PO DAILY [facility] Last Admin: 12/20/18 08:52 Dose: 20 mg Benazepril HCl (Lotensin) 10 mg PO DAILY [facility] Last Admin: 12/20/18 08:52 Dose: 10 mg Citalopram Hydrobromide (Celexa) 20 mg PO HS [facility] Last Admin: 12/19/18 20:12 Dose: 20 mg Enoxaparin Sodium (Lovenox) 40 mg SC 0900 [facility] Last Admin: 12/20/18 08:52 Dose: 40 mg Haloperidol Lactate (Haldol) 5 mg IM Q4H PRN PRN Reason: Agitation Levothyroxine Sodium (Synthroid) 50 mcg PO 0600 [facility] Last Admin: 12/20/18 06:23 Dose: 50 mcg Lorazepam (Ativan) 2 mg SLOW IVP Q6H PRN PRN Reason: Anxiety/Agitation Mirabegron (Myrbetriq Er) 50 mg PO DAILY [facility] Last Admin: 12/20/18 08:53 Dose: 50 mg Ondansetron HCl (Zofran) 4 mg IVP Q6H PRN PRN Reason: Nausea/Vomiting Quetiapine Fumarate (Seroquel) 100 mg PO [facility] Last Admin: 12/19/18 20:12 Dose: 100 mg Sodium Chloride (Flush - Normal Saline) 10 ml IVF Q12HR PRN PRN Reason: Saline Flush Zolpidem Tartrate (Ambien) 5 mg PO HSPRN PRN PRN Reason: Insomnia
[2018-12-20] MEDS: Calcium Carbonate 500 MG ChewTAB PO PRN ×2 (18:38→23:25)
[2018-12-20] MEDS: Citalopram 20 MG TAB PO SCH (22:03)
[2018-12-21] MEDS: Levothyroxine Sodium 50 MCG TAB PO SCH (05:50)
[2018-12-21] MEDS: Atorvastatin Calcium 20 MG TAB PO SCH (10:08)
[2018-12-21] MEDS: Enoxaparin Sodium 40 MG/0.4 ML SYRINGE SC SCH (10:09)
[2018-12-21 16:52] VITALS: BP 136/64; TEMP 98.2
--- NOTE | 2018-12-21 22:10 | DIS ---
DATE OF ADMISSION: 12/19/2018 DATE OF DISCHARGE: 12/21/2018 ALLERGIES: SPIRONOLACTONE AND TETRACYCLINES. CHIEF COMPLAINT: Altered mental status and combativeness. FINAL DIAGNOSES: 1. Altered mental status in the setting of recent hemorrhagic stroke and dementia, improved since admission. 2. Recent hemorrhagic left temporal stroke diagnosed in 11/2018. 3. Dementia. 4. Hyperlipidemia. PROCEDURES PERFORMED: None. LABORATORY RESULTS: From 12/18/2018, white blood cell count 6.6, red blood cell 4, hemoglobin 12, hematocrit 36.3, and platelet count is 169. Chemistry; sodium 141, potassium 4.0, chloride 103, anion gap 11, BUN 23, creatinine 0.95, GFR 76, and glucose 88. All liver function tests within normal limits. Albumin 4.2. Urinalysis negative. IMAGING: Brain CT performed on 12/18/2018 during this hospitalization showed continued resolution of the previously noted hematoma infarct in the left temporal lobe. No acute intracranial hemorrhage. CONSULTATIONS: None. HOSPITAL COURSE: The patient is an 83-year-old male with past medical history significant for recent left temporal hemorrhagic stroke and dementia, who was recently discharged from this facility on 12/17/2018. He was taken home, but the patient became very combative and were unable to care for him at home and so brought him back to the ER for further evaluation and possible arrangements for SNF. The patient's Seroquel and Celexa were continued. The patient's behavior continued to improve throughout his admission. He slept last night. He has been agreeable with staff. He denied placement at the place of choice of the family, and due to his improvement in behavior, the family now wishes to take him home. On my interview, the patient is agreeable and pleasant. He is answering some questions appropriately. He has no complaints today and specifically denies chest pain, shortness of breath, abdominal pain, nausea, vomiting, diarrhea, fever, chills, or cough. Care has been discussed at length with family members and all questions were answered. PHYSICAL EXAMINATION: VITAL SIGNS: Blood pressure 117/74, temperature is 97.3, pulse 54, O2 saturation is 95% on room air, and respirations 18. GENERAL: This is an elderly male, awake and alert, in no acute distress. HEENT: Atraumatic and normocephalic. Eye movement intact. NECK: Supple. No lymphadenopathy. No carotid bruits. No JVD. RESPIRATORY: Regular respiratory rate and pattern, clear to auscultation bilaterally. No rhonchi, wheezes, or crackles. CV: S1, S2. Regular rate and rhythm. No appreciable murmurs, rubs, or gallops. GI: Soft, nontender, normal bowel sounds. PERIPHERAL VASCULAR: No lower extremity pitting edema. +2 DP pulses bilaterally. MUSCULOSKELETAL: No joint effusion or swelling. NEUROLOGIC: Awake and alert. He is following commands. SKIN: Warm and dry. No skin discolorations. CONDITION AT DISCHARGE: Stable. DISCHARGE MEDICATIONS: 1. Atorvastatin 20 mg tablet one tablet p.o. daily. 2. Benazepril 10 mg tablet one tablet p.o. daily. 3. Lansoprazole 30 mg tablet one tablet p.o. daily. 4. Myrbetriq 50 mg tablet extended release one tablet daily. 5. Celexa 20 mg tablet one tablet p.o. at bedtime. 6. Levothyroxine 50 mcg tablet one tablet p.o. daily. 7. Quetiapine 100 mg tablet 100 mg p.o. at bedtime. DISCHARGE DISPOSITION: Home with family. PLAN: As mentioned, care has been discussed at length with the family, and at this point, they wish to take him home. From a medical standpoint, he has been quite stable. His combativeness and behavior have improved throughout his stay. He will continue follow up with his primary care physician and his neurologist. Per Case Management, the request for placement will be left open, and if further changes should occur at home, he may be a candidate for placement at that time. He will continue his home medications. All care discussed with the patient and the patient's family and questions were answered to their satisfaction. Care discussed with Dr. Lopez, who agrees with plan. Job ID: [id number]
== END 2018-12-21 16:56 | disposition home or self-care (01) ==
LOC: ERS 20:17 → T4-B 12-19 01:30
PROVIDERS: ADMIT Internal Medicine; ATTEND Internal Medicine
DX: R41.82 Altered mental status, unspecified (principal); F03.90 Unspecified dementia, unspecified severity, without behavioral disturbance, psychotic disturbance, mood disturbance, and anxiety; E78.5 Hyperlipidemia, unspecified; E03.9 Hypothyroidism, unspecified; I10 Essential (primary) hypertension; Z86.73 Personal history of transient ischemic attack (TIA), and cerebral infarction without residual deficits; Z66 Do not resuscitate; Z79.899 Other long term (current) drug therapy; Z88.1 Allergy status to other antibiotic agents; Z88.8 Allergy status to other drugs, medicaments and biological substances
CPT/HCPCS: 70450; 80053; 81003; 85025; 96372 ×3; 96374; 97116 ×2; 97139; 99285; G0378 ×3; 36415; J1650; J2060

== ENCOUNTER 2021-02-27 08:34 | Inpatient (IN) | payer MEDICARE ==
[2021-02-27] MEDS ORDERED: Iopamidol-370 76% 500 ML 1 ML ONE (09:07)
[2021-02-27 09:22] LABS: #Eosinphils 0.1 thou/uL (0.0-0.7); #Lymphocytes 0.6 thou/uL (1.20-3.40); #Monocytes 0.5 thou/uL (0.11-0.59); %Basophils 0.1 % (0.0-1.0); %Eosinophils 0.6 % (0.0-10.0); %Lymphocytes 5.2 % (21.0-51.0); %Monocytes 4.4 % (0.0-10.0); %Neutrophils 89.6 % (42.0-75.0); Hemoglobin 13.9 g/dL (14.0-18.0); Mean Corpuscular HGB CONC 32.8 g/dL (32.0-36.0); Mean Corpuscular Hemoglobin 31.5 pg (27.0-31.0); Mean Corpuscular Volume 96.2 fL (78.0-98.0); Mean Platelet Volume 9.5 fL (7.4-10.4); Platelet Count 192 thou/uL (130-400); RBC Distribution Width 12.6 % (11.5-14.5); White Blood Cell (WBC) Count 12.2 thou/uL (4.8-10.8)
[2021-02-27] MEDS ORDERED: Cefepime 2 GM VIAL ONE (09:30)
[2021-02-27 09:47] LABS: ALT (SGPT) 177 U/L (8-55); AST (SGOT) 106 U/L (5-34); Albumin 4.2 g/dL (3.4-4.8); Alkaline Phosphatase 84 U/L (40-110); Anion Gap 15 mmol/L (10-20); BUN (Urea Nitrogen) 29 mg/dL (8.4-25.7); Bilirubin, Total 0.6 mg/dL (0.2-1.2); Calc. Creatinine Clearance 0 mL/min (70-130); Calcium 9.5 mg/dL (7.8-10.44); Carbon Dioxide 27 mmol/L (23-31); Chloride 105 mmol/L (98-107); Globulin 2.6 g/dL (2.4-3.5); Glucose 156 mg/dL (83-110); Potassium 4.1 mmol/L (3.5-5.1); Protein, Total 6.8 g/dL (5.8-8.1); Sodium 143 mmol/L (136-145)
[2021-02-27 10:18] LABS: Bilirubin Negative (Negative); Blood, Urine Negative (Negative); Clarity Clear (Clear); Glucose, Urine (Dipstick) Normal (Negative); Ketone, Urine Negative (Negative); Leukocyte Negative Leu/uL (Negative); Nitrite Negative (Negative); Protein, Urine (Dipstick) 20 mg/dL (Neg-Trace); Specific Gravity, Urine 1.023 (1.002-1.036); Urobilinogen Normal mg/dL (Less than 2)
[2021-02-27] MEDS ORDERED: Vancomycin 1 GM/200 ML BAG ONE (11:20)
[2021-02-27] MEDS ORDERED: Ketorolac Tromethamine 30 MG/ML VIAL ONE (12:23)
[2021-02-27] MEDS ORDERED: Ondansetron PF 4 MG/2 ML Vial IVP PRN (12:40)
[2021-02-27 13:57] LABS: SARS-CoV-2 NAA Rapid Test Not Detected (NotDetected)
[2021-02-27] MEDS ORDERED: Ampicillin/Sulbactam 3 GM in Sodium Chloride 0.9% 100 ML IVPB SCH (14:00)
[2021-02-27 15:18] VITALS: BMI 21.5
[2021-02-27] MEDS: Sodium Chloride 0.9% 1,000 ML IV SCH (15:58)
[2021-02-27] MEDS: Ampicillin/Sulbactam 3 GM in Sodium Chloride 0.9% 100 ML IVPB SCH ×2 (16:01→21:31)
[2021-02-27] MEDS ORDERED: Acetaminophen 325 MG TAB PO PRN (16:54)
[2021-02-27] MEDS ORDERED: Ketorolac Tromethamine 30 MG/ML VIAL IVP PRN (20:49)
[2021-02-27] MEDS: Divalproex Sodium 250 MG (DR) TAB PO SCH (21:41)
[2021-02-27] MEDS: Citalopram 20 MG TAB PO SCH (21:42)
[2021-02-28] MEDS: Sodium Chloride 0.9% 1,000 ML IV SCH ×3 (02:34→22:26)
[2021-02-28] MEDS: Ampicillin/Sulbactam 3 GM in Sodium Chloride 0.9% 100 ML IVPB SCH ×4 (04:58→22:16)
[2021-02-28] MEDS: Levothyroxine Sodium 50 MCG TAB PO SCH (05:04)
[2021-02-28 06:13] LABS: #Eosinphils 0.1 thou/uL (0.0-0.7); #Lymphocytes 1.3 thou/uL (1.20-3.40); #Monocytes 0.9 thou/uL (0.11-0.59); #Neutrophils 12.7 thou/uL (1.40-6.50); %Basophils 0.3 % (0.0-1.0); %Eosinophils 0.6 % (0.0-10.0); %Lymphocytes 8.6 % (21.0-51.0); %Neutrophils 84.6 % (42.0-75.0); Hemoglobin 11.8 g/dL (14.0-18.0); Mean Corpuscular HGB CONC 32.3 g/dL (32.0-36.0); Mean Corpuscular Hemoglobin 31.4 pg (27.0-31.0); Mean Corpuscular Volume 97.3 fL (78.0-98.0); Mean Platelet Volume 9.7 fL (7.4-10.4); Platelet Count 137 thou/uL (130-400); RBC Distribution Width 12.8 % (11.5-14.5); Red Blood Cell (RBC) Count 3.77 mill/uL (4.70-6.10)
[2021-02-28 06:38] LABS: Anion Gap 13 mmol/L (10-20); BUN (Urea Nitrogen) 25 mg/dL (8.4-25.7); Calc. Creatinine Clearance 58 mL/min (70-130); Calcium 8.4 mg/dL (7.8-10.44); Carbon Dioxide 24 mmol/L (23-31); Chloride 111 mmol/L (98-107); Glucose 100 mg/dL (83-110); Potassium 3.8 mmol/L (3.5-5.1); Sodium 144 mmol/L (136-145)
[2021-02-28] MEDS ORDERED: Morphine 2 MG/ML VIAL SLOW IVP PRN (08:25)
[2021-02-28] MEDS ORDERED: Iopamidol-370 76% 500 ML 1 ML ONE (08:49)
[2021-02-28] MEDS: Enoxaparin Sodium 40 MG/0.4 ML SYRINGE SC SCH (11:08)
[2021-02-28] MEDS ORDERED: Fleet Enema 133 ML BOT PR SCH (11:30)
[2021-02-28 19:48] VITALS: TEMP 98
[2021-02-28] MEDS: Citalopram 20 MG TAB PO SCH ×2 (19:58→22:15)
[2021-02-28] MEDS: Divalproex Sodium 250 MG (DR) TAB PO SCH ×2 (19:58→22:15)
[2021-03-01] MEDS: Ampicillin/Sulbactam 3 GM in Sodium Chloride 0.9% 100 ML IVPB SCH ×2 (03:18→10:55)
[2021-03-01 06:18] LABS: #Eosinphils 0.6 thou/uL (0.0-0.7); #Lymphocytes 1.4 thou/uL (1.20-3.40); #Neutrophils 7.7 thou/uL (1.40-6.50); %Basophils 0.2 % (0.0-1.0); %Eosinophils 5.2 % (0.0-10.0); %Lymphocytes 13.1 % (21.0-51.0); %Monocytes 9.1 % (0.0-10.0); %Neutrophils 72.4 % (42.0-75.0); Hemoglobin 10.7 g/dL (14.0-18.0); Mean Corpuscular HGB CONC 32.8 g/dL (32.0-36.0); Mean Corpuscular Hemoglobin 31.4 pg (27.0-31.0); Mean Platelet Volume 9.9 fL (7.4-10.4); Platelet Count 123 thou/uL (130-400); RBC Distribution Width 12.8 % (11.5-14.5); Red Blood Cell (RBC) Count 3.41 mill/uL (4.70-6.10); White Blood Cell (WBC) Count 10.6 thou/uL (4.8-10.8)
[2021-03-01] MEDS: Levothyroxine Sodium 50 MCG TAB PO SCH (06:22)
[2021-03-01 06:33] LABS: Anion Gap 9 mmol/L (10-20); BUN (Urea Nitrogen) 13 mg/dL (8.4-25.7); Calc. Creatinine Clearance 65 mL/min (70-130); Carbon Dioxide 25 mmol/L (23-31); Chloride 111 mmol/L (98-107); Glucose 88 mg/dL (83-110); Potassium 3.3 mmol/L (3.5-5.1); Sodium 142 mmol/L (136-145)
[2021-03-01] MEDS: Enoxaparin Sodium 40 MG/0.4 ML SYRINGE SC SCH (08:35)
[2021-03-01] MEDS ORDERED: Potassium Chloride 20 MEQ TAB PO SCH (09:38)
[2021-03-01 11:51] VITALS: BP 110/68
== END 2021-03-01 14:16 | disposition home or self-care (01) | DRG 195 ==
LOC: ERS 08:34 → T4-A 12:00
PROVIDERS: ADMIT Internal Medicine; ATTEND Internal Medicine
DX: J18.9 Pneumonia, unspecified organism (principal); F03.90 Unspecified dementia, unspecified severity, without behavioral disturbance, psychotic disturbance, mood disturbance, and anxiety; N18.2 Chronic kidney disease, stage 2 (mild); E78.00 Pure hypercholesterolemia, unspecified; E86.0 Dehydration; E03.9 Hypothyroidism, unspecified; R00.1 Bradycardia, unspecified; K56.41 Fecal impaction; Z20.822 Contact with and (suspected) exposure to COVID-19; Z85.46 Personal history of malignant neoplasm of prostate; Z98.890 Other specified postprocedural states; Z79.899 Other long term (current) drug therapy; Z88.1 Allergy status to other antibiotic agents; Z88.8 Allergy status to other drugs, medicaments and biological substances
CPT/HCPCS: 0240U; 36415; 36416; 51701; 71045; 74177; 76705; 80048; 80053; 81003; 83605; 84443; 84484; 85025; 87040; 87086; 93005; 93010; 96365; 96367; 96375; J0295; J0692; J1650; J1885; J2270; J3370; J3490; Q9967